=== PATIENT | male | born 1935 | race Caucasian/White ===

== ENCOUNTER 2016-12-08 17:35 | Inpatient (IN) ==
[2016-12-08] MEDS ORDERED: SODIUM CHLORIDE 0.9% 500 ML IV STA (18:03)
--- NOTE | 2016-12-08 18:07 | Emergency Department Note ---
Arrival - Arrival Chief Complaint: Altered Mental Status Stated Complaint: altered loc ED Nursing Triage Note: pt to er 06 via ems coming from home with c/o having ams. 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 ems states pt went unresponsive had a syncopal episode. pt did take morphine tabs and ems gave 0.8mg narcan group captain and pt woke up. Mode of Arrival: Stretcher Limitations: No Limitations Source: Patient Time Seen by Provider: 12/08/16 18:03 - History of Present Illness HPI Narrative: This 80-year-old white male presents 1 hour post syncopal spell at his place of employment. The patient was feeling particularly well today and was sitting on the couch at the business office when the next thing he knew he had people standing over him as he awakened after they stated he just passed out and became unresponsive for several seconds. The patient denies any symptoms associated with this syncopal spell, primarily being an abrupt spell with no preceding sweats, nausea, palpitations, chest pain, shortness of breath, visual changes, slurred speech, focal deficits, feeling warm all over, or headache. The patient does have small cell lung cancer that he completed chemo and radiation treatment for in July and does take narcotics on a regular basis but today had only taken one morphine pill and that was this morning. This being said when EMS arrived on the scene they gave the patient Narcan 0.8 mg and he promptly woke up. Currently he is back to normal, alert and oriented 3. Onset (ago): hour(s) (This patient presents 1 hour post incident) Allergies/Adverse Reactions: Allergies Allergy/AdvReac Type Severity Reaction Status Date / Time No Known Allergies Allergy Verified 12/08/16 17:55 Home Medications: Home Medications Medication Instructions Recorded Confirmed Type Aspirin EC Tab 325 mg PO DAILY 03/31/15 09/11/16 History Carvedilol [Coreg] 6.25 mg PO BID 03/31/15 09/11/16 History Esomeprazole Magnesium [Nexium] 40 mg PO DAILY 03/31/15 09/11/16 History Fosinopril [Monopril] 10 mg PO DAILY 03/31/15 09/11/16 History Rosuvastatin Calcium [Crestor] 5 mg PO DAILY 03/31/15 09/11/16 History Cilostazol [Pletal] 50 mg PO BID #60 tablet 04/06/16 09/11/16 Rx Clopidogrel [Plavix] 75 mg PO DAILY #30 tablet 04/06/16 09/11/16 Rx Hydromorphone HCl [Dilaudid] 4 mg PO Q4-6H #10 tablet 09/11/16 Rx Mirtazapine [Remeron] 30 mg PO BEDTIME 09/11/16 09/11/16 History Review of System - Review of System 12 point system: reviewed and no additional remarkable complaints except as stated - Review of System Constitutional: Present: as per HPI Respiratory: Present: as per HPI Cardiovascular: Present: as per HPI Gastrointestinal: Present: as per HPI Neurological: Present: as per HPI Medical,Surgical,& Family Hx - Medical History Cardio: History of: Congenital Heart Disease, CHF, CAD, Hypertension, Cardiovascular Problems (AAA) No history of: Aneurysm, Cardiac Dysrhythmia, Cerebrovascular Disease, [place], Pacemaker, PVD, Valvular Heart Disease Psychological: History of: Anxiety Disorders, Depression Neurology: No history of: Brain Aneurysm, Cerebral Hemorrhage, Cerebrovascular Accident , Cerebral Palsy, Dementia, Migraine, Multiple Sclerosis, Parkinson's Disease, Peripheral Neuropathy, Seizures, TIA, Vertigo, Neurologocal Cancer Endocrine: No history of: Diabetes Mellitus (IDDM), Diabetes Mellitus (NIDDM), Dyslipidemia Respiratory: History of: Lung Cancer No history of: Asthma, Bronchitis, COPD, Intubation, Obstructive Sleep Apnea , Pulmonary Embolism, Pulmonary Hypertension, Pneumonia, Respiratory Problems Musculoskeletal: No history of: Amputation - Surgical History Cardiac Surgeries: Sugical HX of: Cardiac Catheterization, Cardiac Surgery (CABG ) Patient Denies: Femoral-Popliteal Bypass Graft, Carotid Endarterectomy, Internal Defibrillator, Vascular Access Devices Thoracic Surgeries: Patient denies;: Organ Transplant, Lobectomy Neurologic Surgeries: Patient denies: Brain Aneurysm, Cerebral Hemorrhage, Neurologic Surgery HEENT Surgeries: Patient denies: Carotid Endarterectomy Abdominal Surgeries: Patient denies: Abdominal Surgery, Splenectomy Reproductive Surgeries: Patient denies;: Genitourinary Surgery - Social History Smoking Status: Former smoker Frequency of Alcohol Use: None Type of Drug Use: None Exam Physical Examination: GENERAL: Well developed, well nourished white male in no acute distress. HEENT: Normocephalic. No trauma. Moist mucous membranes. EOMI. PERRLA. ENT NML NECK: Supple. No adenopathy. CARDIAC: Regular. No murmurs. Heart rate 78 CHEST: Clear to auscultation. No respiratory distress. O2 sat 98% ABDOMEN: Soft. Nontender. Active bowel sounds. EXTREMITIES: No trauma. Normal ROM. No pedal edema. SKIN: No diaphoresis. No rash. NEURO: Alert. Oriented 3. Motor, sensory, vibratory intact. No focal deficits. Vital Signs: Vital Signs Temperature 98.4 F 12/08/16 17:35 Pulse Rate 76 12/08/16 17:35 Respiratory Rate 18 12/08/16 17:35 Blood Pressure 153/82 12/08/16 17:35 O2 Sat by Pulse Oximetry 97 12/08/16 18:30 Course - Reevaluation(s) Reevaluation #1: Advised patient and family of dehydration and need for admission given his degree of renal azotemia for fluid repletion. - Consultations Consultation #1: Discussed with Dr. Perales who will admit for Dr. Daniel for further evaluation treatment. Results - Labs CBC & BMP: 12/08/16 18:31 12/08/16 18:31 Labs: I have reviewed the laboratory and noted the renal azotemia and accompanying rhabdomyolysis. The patient's normal creatinine is 1.0. - Impressions EKG: Sinus rhythm at 76 with normal CO interval and QRS duration. Evidence of old inferior NH. Nonspecific ST changes with no acute injury pattern noted - Diagnostic Findings Procedure: Chest x-ray: image reviewed by me, report reviewed by me (Stable right midlung field lesion), CT: image reviewed by me, report reviewed by me ( Head: Cerebral atrophy with microvascular ischemia, interval lacunar infarct of the left cerebral hemisphere, midline posterior fossa arachnoid cyst.) Disposition Clinical Impression: Renal azotemia, Rhabdomyolysis, Qat cell carcinoma Case discussed with: patient, patient's family Disposition: Still a Patient Condition: Guarded Time of Disposition: 19:38
--- NOTE | 2016-12-08 18:29 | CT Report ---
CT head/brain wo con Indication: Altered mental status. Comparison: CT head 03/29/2016. Technique: CT of the brain was performed without administration of intravenous contrast. The CT examination was performed using one or more of the following dose reduction techniques: Automatic exposure control, adjustment of the mA and kV according to patient size, use of acute or iterative reconstruction techniques. Findings: There is no evidence of acute intracranial mass, hemorrhage, or infarction. Small lacunar infarction is noted within the right basal ganglia. Generalized cerebral atrophy is present. Areas of decreased attenuation within the periventricular white matter and cerebral white matter are present which could be compatible with microvascular ischemia. The basal cisterns are patent. No significant abnormality is demonstrated to involve the posterior fossa or cerebellum. Fluid collection near the midline of the posterior fossa is stable and suggests megacisterna magna, arachnoid cyst, or Dandy-Walker variant. Small interval lacunar infarction of the left cerebral hemisphere is present.. Orbits and globes demonstrate no evidence of significant pathology. The paranasal sinuses are clear. No significant abnormality is demonstrated to involve the mastoid air cells. The calvarium and overlying soft tissues demonstrate no evidence of acute pathology. Impression: 1. No CT evidence of acute intracranial pathology. 2. Stable chronic changes with exception of interval lacunar infarction of the left cerebellar hemisphere. 12/08/2016 6:24 PM PROCEDURE INTERPRETED AT [facility] DEPARTMENT OF RADIOLOGY Final Report Signed by: Dr. Lennox Dow
--- NOTE | 2016-12-08 18:29 | XRay Report ---
XR chest 1V portable Indication: Altered mental status. Shortness of breath. Comparison: Chest x-ray 09/11/2016 Technique: Portable AP chest was performed. Findings: Borderline to mild cardiomegaly is demonstrated. Sternal wires are unchanged. Left-sided venous access device is stable. Stranding within the mid right lung along the lateral lung parenchyma may reflect scarring and appears stable. Lungs otherwise are clear. The soft tissues appear stable. Impression: 1. Stable stranding lateral aspect of the mid right lung may reflect scarring. No active process is clearly demonstrated. 12/08/2016 6:26 PM PROCEDURE INTERPRETED AT [facility] DEPARTMENT OF RADIOLOGY Final Report Signed by: Dr. Lennox Dow
[2016-12-08 18:40] LABS: Basophils % 0.4 % (0.0-0.8); Eosinophils % 0.4 % (0.00-10.9); Hematocrit 37.9 VOL% (42.0-52.0); Hemoglobin 12.7 GM/DL (14.0-18.0); Immature Granulocytes % 0.4 %; Immature Granulocytes Absolute 0.02 #; Lymphocytes # 0.7 10*3/uL (1.4-4.0); Lymphocytes % 11.5 % (21.2-54.2); Mean Corpuscular HGB Conc 33.5 GM/DL (32-36); Mean Corpuscular Hemoglobin 30 PG (27-34); Mean Corpuscular Volume 90.5 FL (87-102); Mean Platelet Volume 9.6 FL (9.6-12.0); Monocytes # 0.5 10*3/uL (0.11-0.8); Neutrophils # 4.5 10*3/uL (1.4-7.4); Neutrophils % 78.3 % (38.7-73.9); Platelet Count 102 T/CUMM (130-400); Red Blood Count 4.19 MC/CUMM (3.8-5.5); Red Cell Distribution Width 14.2 % (9.3-17.3); White Blood Count 5.7 T/CUMM (4-12)
[2016-12-08 18:52] LABS: INR 1.1; PT Patient Result 11.4 SECS; Partial Thromboplastin Time 23.1 SECS (0-40)
[2016-12-08 18:58] LABS: Ammonia 24 UMOL/L (11-32)
[2016-12-08 19:14] LABS: Alanine Aminotransferase 28 U/L (16-61); Albumin 4.3 G/DL (3.4-5.0); Alkaline Phosphatase 54 U/L (45-117); Aspartate Amino Transferase 28 U/L (0-37); Blood Urea Nitrogen 36 MG/DL (7-18); CKMB % 1.7 %; Calcium 9.3 MG/DL (8.5-10.1); Glucose 106 MG/DL (74-106); Osmolality,Calculated 282.7 MOS/KG (273-304); Potassium 4.8 MMOL/L (3.5-5.1); Sodium 138 MMOL/L (136-145); Total Protein 7.3 G/DL (6.4-8.3); Troponin I Only < 0.015 NG/ML (0.00-0.045)
[2016-12-08] MEDS ORDERED: ONDANSETRON 4 MG/2 ML VIAL IV PRN (19:40)
[2016-12-08] MEDS ORDERED: ALBUTEROL/IPRATROPIUM 3 ML NEB RESP TX PRN (19:40)
[2016-12-08] MEDS: SODIUM CHLORIDE 0.9% 1,000 ML IV SCH (21:08)
[2016-12-08] MEDS: MIRTAZAPINE 30 MG TABLET PO SCH (21:12)
[2016-12-08] MEDS: CARVEDILOL 6.25 MG TABLET PO SCH (21:27)
[2016-12-08] MEDS: ROSUVASTATIN 20 MG TABLET PO SCH (21:27)
[2016-12-09] MEDS: SODIUM CHLORIDE 0.9% 1,000 ML IV SCH ×4 (02:51→15:25)
[2016-12-09 05:13] LABS: Apearance,Urine Slightly Hazy (Clear); Bilirubin,Urine Negative (Negative); Blood, Urine Negative (Negative); Glucose,Urine (UA) Negative (Negative); Hyaline Casts,Urine 1 /LPF (0-3); Ketones,Urine Negative (Negative); Mucus,Urine Occasional /LPF (Occasional); Nitrite,Urine Negative (Negative); Protein,Urine Negative; RBC,Urine <1 /HPF (0-4); Squamous Epithelial Cell,Urine Occasional /HPF (0-10); Urine Color Yellow (Yellow); Urine Specific Gravity 1.017 (1.001-1.035); WBC,Urine <1 /HPF (0-6)
[2016-12-09 06:22] LABS: Calcium 8.1 MG/DL (8.5-10.1); Osmolality,Calculated 285.4 MOS/KG (273-304)
--- NOTE | 2016-12-09 08:04 | EKG Report ---
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
[2016-12-09] MEDS: CARVEDILOL 6.25 MG TABLET PO SCH ×2 (08:49→21:06)
[2016-12-09] MEDS: PANTOPRAZOLE 40 MG TABLET PO SCH (08:49)
--- NOTE | 2016-12-09 08:49 | Internal Med History&Physical ---
Assessment and Plan (1) Change in mental state Status: Acute Assessment and plan: 80-year-old male admitted to acute care. * Change in mental status. Etiology is unclear but probably related to pain medications. Will try to find out what pain medication he has been taking. CT chest was negative for any acute changes. He was back to baseline after getting Narcan * Acute kidney injury. Patient's creatinine was 3.1 on admission. His renal function was normal about a month back. Will continue him on IV fluid * Coronary artery disease. Stable * Peripheral vascular disease. Stable. Will continue him on Plavix and Pletal along with aspirin * Hypertension. Blood pressure is stable at this time * Discussed with patient and his Current Visit: Yes (2) Acute kidney injury Status: Acute Current Visit: Yes (3) Coronary artery disease Status: Chronic Current Visit: No Qualifiers: Coronary Disease-Associated Artery/Lesion type: [place] artery [place] vs. transplanted heart: [place] heart Associated angina: without angina Qualified Code(s): I25.10 - Atherosclerotic heart disease of [place] coronary artery without angina pectoris (4) HTN (hypertension) Status: Chronic Current Visit: No Qualifiers: Hypertension type: essential hypertension Qualified Code(s): I10 - Essential (primary) hypertension (5) History of lung cancer Status: Chronic Current Visit: No (6) Ischemic cardiomyopathy Status: Chronic Current Visit: No History of Present Illness History of present illness: Mr. Torres is a 80 year old male with history of multiple medical problems including coronary artery disease, small cell lung cancer, hypertension, neuropathy and former smoker. Patient was admitted through emergency room with change in mental status. Patient had a syncopal episode while he was at his place of work. He was seen by EMS who gave him 0.8 mg of Narcan prior to arrival to the ER and patient woke up. Patient denied any chest pain or shortness of breath prior to this episode. He denies any other problems. Patient was found to have an acute kidney injury on arrival to the emergency room. He was started on IV fluids and admitted. He denies any chest pain or shortness of breath. He denies any nausea vomiting or diarrhea. He takes pain medicine per pain clinic. He had a recent cardiac evaluation in March of last year including a cardiac catheterization. He has ischemic cardiomyopathy. Patient is poor historian. His ex- is with him. He lives alone. He denies any smoking or alcohol use. He is a former smoker. Patient does take pain medications as mentioned above per pain clinic. Home Medications Medication Instructions Recorded Confirmed Type Aspirin EC Tab 325 mg PO DAILY 03/31/15 09/11/16 History Carvedilol [Coreg] 6.25 mg PO BID 03/31/15 09/11/16 History Esomeprazole Magnesium [Nexium] 40 mg PO DAILY 03/31/15 09/11/16 History Fosinopril [Monopril] 10 mg PO DAILY 03/31/15 09/11/16 History Rosuvastatin Calcium [Crestor] 5 mg PO DAILY 03/31/15 09/11/16 History Cilostazol [Pletal] 50 mg PO BID #60 tablet 04/06/16 09/11/16 Rx Clopidogrel [Plavix] 75 mg PO DAILY #30 tablet 04/06/16 09/11/16 Rx Hydromorphone HCl [Dilaudid] 4 mg PO Q4-6H #10 tablet 09/11/16 Rx Mirtazapine [Remeron] 30 mg PO BEDTIME 09/11/16 09/11/16 History Allergies Allergy/AdvReac Type Severity Reaction Status Date / Time No Known Allergies Allergy Verified 12/08/16 17:55 Medical,Surgical,& Family Hx - Medical History Cardio: History of: Congenital Heart Disease, CHF, CAD, Hypertension, Cardiovascular Problems (AAA) No history of: Aneurysm, Cardiac Dysrhythmia, Cerebrovascular Disease, [place], Pacemaker, PVD, Valvular Heart Disease Psychological: History of: Anxiety Disorders, Depression Neurology: No history of: Brain Aneurysm, Cerebral Hemorrhage, Cerebrovascular Accident , Cerebral Palsy, Dementia, Migraine, Multiple Sclerosis, Parkinson's Disease, Peripheral Neuropathy, Seizures, TIA, Vertigo, Neurologocal Cancer Endocrine: No history of: Diabetes Mellitus (IDDM), Diabetes Mellitus (NIDDM), Dyslipidemia Respiratory: History of: Lung Cancer No history of: Asthma, Bronchitis, COPD, Intubation, Obstructive Sleep Apnea , Pulmonary Embolism, Pulmonary Hypertension, Pneumonia, Respiratory Problems Musculoskeletal: No history of: Amputation - Surgical History Cardiac Surgeries: Sugical HX of: Cardiac Catheterization, Cardiac Surgery (CABG ) Patient Denies: Femoral-Popliteal Bypass Graft, Carotid Endarterectomy, Internal Defibrillator, Vascular Access Devices Thoracic Surgeries: Patient denies;: Organ Transplant, Lobectomy Neurologic Surgeries: Patient denies: Brain Aneurysm, Cerebral Hemorrhage, Neurologic Surgery HEENT Surgeries: Patient denies: Carotid Endarterectomy Abdominal Surgeries: Patient denies: Abdominal Surgery, Splenectomy Reproductive Surgeries: Patient denies;: Genitourinary Surgery - Family History Family History: Reports;: Family Cancer - Social History Smoking Status: Former smoker Frequency of Alcohol Use: None Type of Drug Use: None Marital Status: Lives With:: Alone Functional capacity: independent ambulation 12 point system: reviewed and no additional remarkable complaints except as stated (As mentioned in HPI) Exam - Constitutional Vitals: Period Temp Pulse Resp BP Sys/Rodriguez Pulse Ox Last 24 Hr 98.4 F-100.8 F 9-90 12-20 98-153/63-99 93-99 Exam: Examination: GENERAL: NAD. HEENT: PERRLA. EOMI. Mucous membranes are moist. NECK: Neck is supple. No JVD. Bilateral bruits CVS: Regular rate and rhythm. S1 and S2 are normal. RESPIRATORY: Lungs are clear. No rales or rhonchi. ABDOMEN: Soft and nontender. Bowel sounds are present. No hepatosplenomegaly. EXT: No edema. Peripheral pulses are present. 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 Cranial nerves II through XII are grossly intact. Motor strength is 5 over 5 both upper and lower extremities. SKIN: Warm and dry. MSK: No obvious deformity. Results - Labs CBC & BMP: 12/08/16 18:31 12/09/16 04:00 Lab Results: I have reviewed the past 24 hour labs
[2016-12-09] MEDS ORDERED: FOSINOPRIL 10 MG TABLET PO SCH (09:00)
[2016-12-09] MEDS: GABAPENTIN 400 MG CAPSULE PO SCH ×3 (11:00→21:06)
[2016-12-09] MEDS ORDERED: NON-FORMULARY MEDICATION (Gabapentin [Gabapentin] 800 MG) PO SCH (15:00)
[2016-12-09] MEDS: LORazepam 2 MG/1 ML VIAL IV PRN (18:54)
[2016-12-09] MEDS: ROSUVASTATIN 20 MG TABLET PO SCH (21:06)
[2016-12-09] MEDS: MIRTAZAPINE 30 MG TABLET PO SCH (21:06)
[2016-12-09] MEDS: CILOSTAZOL 50 MG TABLET PO SCH (21:06)
[2016-12-10] MEDS: SODIUM CHLORIDE 0.9% 1,000 ML IV SCH ×4 (00:18→20:27)
[2016-12-10 05:30] LABS: Basophils % 0.4 % (0.0-0.8); Eosinophils # 0.1 10*3/uL (0.0-0.87); Eosinophils % 2.1 % (0.00-10.9); Hematocrit 31.7 VOL% (42.0-52.0); Hemoglobin 10.7 GM/DL (14.0-18.0); Immature Granulocytes % 0.7 %; Immature Granulocytes Absolute 0.02 #; Lymphocytes # 0.8 10*3/uL (1.4-4.0); Lymphocytes % 27.7 % (21.2-54.2); Mean Corpuscular HGB Conc 33.8 GM/DL (32-36); Mean Corpuscular Hemoglobin 30 PG (27-34); Mean Corpuscular Volume 90.1 FL (87-102); Mean Platelet Volume 9.8 FL (9.6-12.0); Monocytes # 0.4 10*3/uL (0.11-0.8); Monocytes % 12.3 % (1.7-12.7); Neutrophils # 1.6 10*3/uL (1.4-7.4); Neutrophils % 56.8 % (38.7-73.9); Platelet Count 63 T/CUMM (130-400); Red Blood Count 3.52 MC/CUMM (3.8-5.5); Red Cell Distribution Width 13.6 % (9.3-17.3); White Blood Count 2.9 T/CUMM (4-12)
[2016-12-10 05:51] LABS: Calcium 8.6 MG/DL (8.5-10.1); Osmolality,Calculated 290.7 MOS/KG (273-304); Potassium 4.6 MMOL/L (3.5-5.1)
[2016-12-10 06:03] LABS: Eosinophils 4 % (0-10); Hypochromasia 1+; Lymphocytes 34 % (20-55); Microcytosis 1+; Platelet Estimate Decreased; Segmented Neutrophils 54 % (50-85); Total Cells Counted 100
[2016-12-10 07:09] LABS: Basophils % 0.3 % (0.0-0.8); Eosinophils # 0.1 10*3/uL (0.0-0.87); Eosinophils % 2.4 % (0.00-10.9); Hematocrit 34.1 VOL% (42.0-52.0); Hemoglobin 11.6 GM/DL (14.0-18.0); Immature Granulocytes % 0.3 %; Immature Granulocytes Absolute 0.01 #; Lymphocytes # 0.8 10*3/uL (1.4-4.0); Lymphocytes % 23.6 % (21.2-54.2); Mean Corpuscular Hemoglobin 30 PG (27-34); Mean Platelet Volume 9.5 FL (9.6-12.0); Monocytes # 0.4 10*3/uL (0.11-0.8); Monocytes % 10.6 % (1.7-12.7); Neutrophils # 2.1 10*3/uL (1.4-7.4); Neutrophils % 62.8 % (38.7-73.9); Red Blood Count 3.83 MC/CUMM (3.8-5.5); Red Cell Distribution Width 13.5 % (9.3-17.3); White Blood Count 3.3 T/CUMM (4-12)
[2016-12-10 07:10] LABS: Platelet Count 95 T/CUMM (130-400)
[2016-12-10 07:27] LABS: Platelet Estimate Decreased
[2016-12-10] MEDS: GABAPENTIN 400 MG CAPSULE PO SCH ×3 (08:53→20:21)
[2016-12-10] MEDS: FENOFIBRATE 160 MG TABLET PO SCH (08:54)
[2016-12-10] MEDS: CLOPIDOGREL 75 MG TABLET PO SCH (08:54)
[2016-12-10] MEDS: CILOSTAZOL 50 MG TABLET PO SCH ×2 (08:54→20:21)
[2016-12-10] MEDS: ROSUVASTATIN 10 MG TABLET PO SCH (08:54)
[2016-12-10] MEDS: CARVEDILOL 6.25 MG TABLET PO SCH ×2 (08:54→20:21)
[2016-12-10] MEDS: PANTOPRAZOLE 40 MG TABLET PO SCH (08:54)
[2016-12-10] MEDS ORDERED: NON-FORMULARY MEDICATION (Esomeprazole Magnesium [Nexium] 40 MG) PO SCH (09:00)
--- NOTE | 2016-12-10 09:33 | Family Practice Progress Note ---
Family Practice - PN: Subj Interval history: PCP: Dr. ORTIZ. Admitted for change in mental status, acute kidney injury. ( Patient has history of coronary artery disease, hypertension, history of lung cancer) Patient seen and examined, sitting at the bedside, ambulating well. Mentions he feels better than yesterday. No fever, nausea, vomiting, chest pain, shortness of breath, headaches, dizziness. No overnight events reported by the nurse Exam (Progress Note) - Constitutional Vitals: Period Temp Pulse Resp BP Sys/Rodriguez Pulse Ox Last 24 Hr 96.8 F-98.2 F 59-71 18-20 128-149/70-79 95-99 Exam: GENERAL APPEARANCE: alert and oriented 2, pleasant, in no acute distress, sitting at the bedside. HEENT: normal. EYES: extraocular movement intact (EOMI), conjunctiva clear, normal. NECK/THYROID: neck supple, full range of motion, no cervical lymphadenopathy, no thyromegaly. HEART: regular rate and rhythm, no murmurs, rubs, gallops. LUNGS: clear to auscultation bilaterally, no wheezes, rales, rhonchi. ABDOMEN: soft, nontender, nondistended, no organomegaly , bowel sounds present. EXTREMITIES: no edema. NEUROLOGIC: alert and oriented, cranial nerves 2-12 grossly intact, gait normal, normal strength, Results - Labs CBC & BMP: 12/10/16 06:47 12/10/16 04:33 Lab Results: I have reviewed the past 24 hour labs - Impressions Reviewed of chest x-ray, head CT results from admission CT chest PE study, 09/11/2016 IMPRESSION: No segmental or larger pulmonary embolism demonstrated. Grossly stable irregular opacity within the right upper lobe measuring approximately 3.2 x 3.8 cm in largest axial dimension. This is consistent with known history of lung cancer. 3 mm nodule within the right lower lobe appears stable. Status post CABG and other detailed findings as above. Assessment and Plan (1) Change in mental state Status: Acute Assessment and plan: Improving, continue current management. 2. Acute kidney injury, improved, will decrease IV fluids, patient eating well. 3. Patient is having low blood counts, will do him hem-Oncology consult today. 4. CAD, stable on medications. 5. History of lung cancer, chronic, last CT chest, september 2016 , Ct chest/ abdomen done in July 2016. 6. Peripheral vascular disease stable continue Plavix and Pletal, aspirin 7. Hypertension, stable continue blood pressure meds. Current Visit: Yes (2) Acute kidney injury Status: Acute Current Visit: Yes (3) Coronary artery disease Status: Chronic Current Visit: No Qualifiers: Coronary Disease-Associated Artery/Lesion type: [place] artery [place] vs. transplanted heart: [place] heart Associated angina: without angina Qualified Code(s): I25.10 - Atherosclerotic heart disease of [place] coronary artery without angina pectoris (4) Dyslipidemia Status: Chronic Current Visit: No (5) HTN (hypertension) Status: Chronic Current Visit: No Qualifiers: Hypertension type: essential hypertension Qualified Code(s): I10 - Essential (primary) hypertension (6) History of lung cancer Status: Chronic Current Visit: No (7) Ischemic cardiomyopathy Status: Chronic Current Visit: No (8) PVD (peripheral vascular disease) Status: Chronic Current Visit: No
--- NOTE | 2016-12-10 10:29 | Hematology Consult ---
History of Present Illness - Consult Narrative History of present illness: Mr. Torres is a 80 year old male with a history of lung cancer that was previously treated by Dr. Anand and has been on observation only. He is admitted now with altered mental status. It appears that he took too much of his narcotic medications and his symptoms improved with Narcan dosing. Hematology has been consulted to evaluate his low white blood cell count and mild thrombocytopenia. Looking back over his lab work, these are stable for at least the past 12 months and are most likely his baseline. I see no reason to have further hematology workup. If there is any questions that we may be of assistance with, please feel free to call. CC: Jayant Daniel MD - Home Medications and Allergies Home Medications: Home Medications Medication Instructions Recorded Confirmed Type Aspirin EC Tab 325 mg PO DAILY 03/31/15 12/09/16 History Carvedilol [Coreg] 6.25 mg PO BID 03/31/15 12/09/16 History Esomeprazole Magnesium [Nexium] 40 mg PO DAILY 03/31/15 12/09/16 History Fosinopril [Monopril] 10 mg PO DAILY 03/31/15 12/09/16 History Rosuvastatin Calcium [Crestor] 5 mg PO DAILY 03/31/15 12/09/16 History Mirtazapine [Remeron] 30 mg PO BEDTIME 09/11/16 12/09/16 History Buprenorphine HCl 8 mg PO DAILY PRN 12/09/16 12/09/16 History Cilostazol [Pletal] 50 mg PO BID 12/09/16 12/09/16 History Clopidogrel [Plavix] 75 mg PO DAILY 12/09/16 12/09/16 History Fenofibrate 160 mg PO DAILY 12/09/16 12/09/16 History Furosemide 20 mg PO DAILY 12/09/16 12/09/16 History Gabapentin 800 mg PO TID 12/09/16 12/09/16 History HYDROcodone/ACETAMIN 7.5-325 7.5 tablet PO Q12HR PRN 12/09/16 12/09/16 History [[place] 7.5-325] HydrOXYzine PAMOATE CAP [Vistaril 25 mg PO Q8HR PRN 12/09/16 12/09/16 History Cap] Hydrocodone/Acetaminophen [[place] 10 tablet PO DAILY PRN 12/09/16 12/09/16 History 10-325 Tablet] Hydromorphone HCl [Dilaudid] 4 mg PO Q4-6H 12/09/16 12/09/16 History LORazepam TAB [Ativan Tab] 1 mg PO DAILY PRN 12/09/16 12/09/16 History Methocarbamol Tab [Robaxin Tab] 750 mg PO Q8HR PRN 12/09/16 12/09/16 History Morphine ER Tab [Ms Contin] 30 mg PO Q12HR PRN 12/09/16 12/09/16 History tiZANidine [Zanaflex] 4 mg PO Q8HR PRN 12/09/16 12/09/16 History Allergies/Adverse Reactions: Allergies Allergy/AdvReac Type Severity Reaction Status Date / Time No Known Allergies Allergy Verified 12/08/16 17:55 Medical,Surgical,& Family Hx - Medical History Cardio: History of: Congenital Heart Disease, CHF, CAD, Hypertension, Cardiovascular Problems (AAA) No history of: Aneurysm, Cardiac Dysrhythmia, Cerebrovascular Disease, [place], Pacemaker, PVD, Valvular Heart Disease Psychological: History of: Anxiety Disorders, Depression Neurology: No history of: Brain Aneurysm, Cerebral Hemorrhage, Cerebrovascular Accident , Cerebral Palsy, Dementia, Migraine, Multiple Sclerosis, Parkinson's Disease, Peripheral Neuropathy, Seizures, TIA, Vertigo, Neurologocal Cancer Endocrine: No history of: Diabetes Mellitus (IDDM), Diabetes Mellitus (NIDDM), Dyslipidemia Respiratory: History of: Lung Cancer No history of: Asthma, Bronchitis, COPD, Intubation, Obstructive Sleep Apnea , Pulmonary Embolism, Pulmonary Hypertension, Pneumonia, Respiratory Problems Musculoskeletal: No history of: Amputation - Surgical History Cardiac Surgeries: Sugical HX of: Cardiac Catheterization, Cardiac Surgery (CABG ) Patient Denies: Femoral-Popliteal Bypass Graft, Carotid Endarterectomy, Internal Defibrillator, Vascular Access Devices Thoracic Surgeries: Patient denies;: Organ Transplant, Lobectomy Neurologic Surgeries: Patient denies: Brain Aneurysm, Cerebral Hemorrhage, Neurologic Surgery HEENT Surgeries: Patient denies: Carotid Endarterectomy Abdominal Surgeries: Patient denies: Abdominal Surgery, Splenectomy Reproductive Surgeries: Patient denies;: Genitourinary Surgery - Family History Family History: Reports;: Family Cancer - Social History Smoking Status: Former smoker Frequency of Alcohol Use: None Type of Drug Use: None Exam - Constitutional Vitals: Period Temp Pulse Resp BP Sys/Rodriguez Pulse Ox Last 24 Hr 96.8 F-98.2 F 59-71 18-20 128-149/70-79 95-99 Results - Labs CBC & BMP: 12/10/16 06:47 12/10/16 04:33
[2016-12-10] MEDS: ROSUVASTATIN 20 MG TABLET PO SCH (20:20)
[2016-12-10] MEDS: MIRTAZAPINE 30 MG TABLET PO SCH (20:21)
[2016-12-10] MEDS: LORazepam 2 MG/1 ML VIAL IV PRN (20:23)
[2016-12-11] MEDS: SODIUM CHLORIDE 0.9% 1,000 ML IV SCH ×3 (01:53→16:32)
[2016-12-11 07:41] LABS: Basophils % 0.3 % (0.0-0.8); Eosinophils # 0.1 10*3/uL (0.0-0.87); Eosinophils % 2.6 % (0.00-10.9); Hematocrit 35.3 VOL% (42.0-52.0); Hemoglobin 12.2 GM/DL (14.0-18.0); Immature Granulocytes % 0.3 %; Immature Granulocytes Absolute 0.01 #; Lymphocytes # 0.7 10*3/uL (1.4-4.0); Lymphocytes % 20.6 % (21.2-54.2); Mean Corpuscular HGB Conc 34.6 GM/DL (32-36); Mean Corpuscular Hemoglobin 31 PG (27-34); Mean Corpuscular Volume 88.5 FL (87-102); Mean Platelet Volume 9.3 FL (9.6-12.0); Monocytes # 0.4 10*3/uL (0.11-0.8); Monocytes % 11.3 % (1.7-12.7); Neutrophils # 2.2 10*3/uL (1.4-7.4); Neutrophils % 64.9 % (38.7-73.9); Platelet Count 109 T/CUMM (130-400); Red Blood Count 3.99 MC/CUMM (3.8-5.5); Red Cell Distribution Width 13.4 % (9.3-17.3); White Blood Count 3.5 T/CUMM (4-12)
[2016-12-11 08:16] LABS: Albumin 3.6 G/DL (3.4-5.0); Bilirubin,Total 0.5 MG/DL (0.2-1.0); Calcium 8.5 MG/DL (8.5-10.1); Potassium 4.2 MMOL/L (3.5-5.1)
--- NOTE | 2016-12-11 08:56 | Family Practice Progress Note ---
Family Practice - PN: Subj Interval history: PCP: Dr. ORTIZ. Admitted for change in mental status, acute kidney injury. ( Patient has history of coronary artery disease, hypertension, history of lung cancer) Patient seen and examined, lying in the bed, at bed side, No fever, nausea, vomiting, chest pain, shortness of breath, headaches, dizziness. had episode of anxiety spell last kodi around 6.30 PM , relieved with ativan, pt is not taking any meds of his own, from home, per the , she has been living separately from the pt since 8-9 years,as per her ,the patient would not get help or disclose whats going on? , the present anxiety spells since 1 year, saw psychiatrist ? only once , has personal stressors , specially with his son,who is on drugs and in and out of the [facility], and anxiety spells happening more often now a days, mostly around evenings or nights, pt on chronic pain meds,? goes to pain clinic, Exam (Progress Note) - Constitutional Vitals: Period Temp Pulse Resp BP Sys/Rodriguez Pulse Ox Last 24 Hr 98.2 F-99.3 F 57-71 16-21 120-187/64-85 91-98 Exam: GENERAL APPEARANCE: alert and oriented 2, pleasant, in no acute distress, lying in the bed. HEENT: normal. EYES: extraocular movement intact (EOMI), conjunctiva clear, normal. NECK/THYROID: neck supple, full range of motion, no cervical lymphadenopathy, no thyromegaly. HEART: regular rate and rhythm, no murmurs, rubs, gallops. LUNGS: clear to auscultation bilaterally, no wheezes, rales, rhonchi. ABDOMEN: soft, nontender, nondistended, no organomegaly , bowel sounds present. EXTREMITIES: no edema. NEUROLOGIC:, cranial nerves 2-12 grossly intact, Results - Labs CBC & BMP: 12/11/16 07:15 12/11/16 07:15 Assessment and Plan (1) Change in mental state Status: Acute Assessment and plan: Improving, continue current management. 2. Acute kidney injury, improved, IV fluids continue for today, 3. Anxiety , continue ativan PRN, need of psychiatry evaluation as outpt, 4. CAD, stable on medications. 5. History of lung cancer, chronic, stable currently, 6. Peripheral vascular disease stable continue Plavix and Pletal 7. Hypertension, stable continue blood pressure meds. Current Visit: Yes (2) Acute kidney injury Status: Acute Current Visit: Yes (3) Coronary artery disease Status: Chronic Current Visit: No Qualifiers: Coronary Disease-Associated Artery/Lesion type: [place] artery [place] vs. transplanted heart: [place] heart Associated angina: without angina Qualified Code(s): I25.10 - Atherosclerotic heart disease of [place] coronary artery without angina pectoris (4) Dyslipidemia Status: Chronic Current Visit: No (5) HTN (hypertension) Status: Chronic Current Visit: No Qualifiers: Hypertension type: essential hypertension Qualified Code(s): I10 - Essential (primary) hypertension (6) Anxiety attack Status: Chronic Current Visit: Yes (7) Ischemic cardiomyopathy Status: Chronic Current Visit: No (8) History of lung cancer Status: Chronic Current Visit: No (9) PVD (peripheral vascular disease) Status: Chronic Current Visit: No
[2016-12-11] MEDS: GABAPENTIN 400 MG CAPSULE PO SCH ×3 (09:33→22:28)
[2016-12-11] MEDS: CILOSTAZOL 50 MG TABLET PO SCH ×2 (09:33→22:29)
[2016-12-11] MEDS: ROSUVASTATIN 10 MG TABLET PO SCH (09:33)
[2016-12-11] MEDS: CLOPIDOGREL 75 MG TABLET PO SCH (09:33)
[2016-12-11] MEDS: PANTOPRAZOLE 40 MG TABLET PO SCH (09:33)
[2016-12-11] MEDS: FENOFIBRATE 160 MG TABLET PO SCH (09:33)
[2016-12-11] MEDS: CARVEDILOL 6.25 MG TABLET PO SCH ×2 (09:34→22:29)
[2016-12-11] MEDS: MIRTAZAPINE 30 MG TABLET PO SCH (22:30)
[2016-12-11] MEDS: ROSUVASTATIN 20 MG TABLET PO SCH (22:33)
[2016-12-11] MEDS: LORazepam 2 MG/1 ML VIAL IV PRN (23:55)
[2016-12-12] MEDS: SODIUM CHLORIDE 0.9% 1,000 ML IV SCH (02:16)
--- NOTE | 2016-12-12 06:45 | Pain Management Consult Note ---
Assessment and Plan (1) Chronic pain Status: Acute Assessment and plan: he wishes to continue with current medication for pain and wants to follow up with Dr. guzmán as op Current Visit: Yes Qualifiers: Chronic pain type: chronic pain syndrome Qualified Code(s): G89.4 - Chronic pain syndrome History of Present Illness Chief complaint: change in mental status History of present illness: Mr. Torres is a 80 year old male he is better now with is mental status and denies any prescription abuse. he sees Dr guzmán as op for pain management and wishes to follow with him as op Home Medications Medication Instructions Recorded Confirmed Type Aspirin EC Tab 325 mg PO DAILY 03/31/15 12/09/16 History Carvedilol [Coreg] 6.25 mg PO BID 03/31/15 12/09/16 History Esomeprazole Magnesium [Nexium] 40 mg PO DAILY 03/31/15 12/09/16 History Fosinopril [Monopril] 10 mg PO DAILY 03/31/15 12/09/16 History Rosuvastatin Calcium [Crestor] 5 mg PO DAILY 03/31/15 12/09/16 History Mirtazapine [Remeron] 30 mg PO BEDTIME 09/11/16 12/09/16 History Buprenorphine HCl 8 mg PO DAILY PRN 12/09/16 12/09/16 History Cilostazol [Pletal] 50 mg PO BID 12/09/16 12/09/16 History Clopidogrel [Plavix] 75 mg PO DAILY 12/09/16 12/09/16 History Fenofibrate 160 mg PO DAILY 12/09/16 12/09/16 History Furosemide 20 mg PO DAILY 12/09/16 12/09/16 History Gabapentin 800 mg PO TID 12/09/16 12/09/16 History HYDROcodone/ACETAMIN 7.5-325 7.5 tablet PO Q12HR PRN 12/09/16 12/09/16 History [[place] 7.5-325] HydrOXYzine PAMOATE CAP [Vistaril 25 mg PO Q8HR PRN 12/09/16 12/09/16 History Cap] Hydrocodone/Acetaminophen [[place] 10 tablet PO DAILY PRN 12/09/16 12/09/16 History 10-325 Tablet] Hydromorphone HCl [Dilaudid] 4 mg PO Q4-6H 12/09/16 12/09/16 History LORazepam TAB [Ativan Tab] 1 mg PO DAILY PRN 12/09/16 12/09/16 History Methocarbamol Tab [Robaxin Tab] 750 mg PO Q8HR PRN 12/09/16 12/09/16 History Morphine ER Tab [Ms Contin] 30 mg PO Q12HR PRN 12/09/16 12/09/16 History tiZANidine [Zanaflex] 4 mg PO Q8HR PRN 12/09/16 12/09/16 History Allergies Allergy/AdvReac Type Severity Reaction Status Date / Time No Known Allergies Allergy Verified 12/08/16 17:55 Medical,Surgical,& Family Hx - Medical History Cardio: History of: Congenital Heart Disease, CHF, CAD, Hypertension, Cardiovascular Problems (AAA) No history of: Aneurysm, Cardiac Dysrhythmia, Cerebrovascular Disease, MT, Pacemaker, PVD, Valvular Heart Disease Psychological: History of: Anxiety Disorders, Depression Neurology: No history of: Brain Aneurysm, Cerebral Hemorrhage, Cerebrovascular Accident , Cerebral Palsy, Dementia, Migraine, Multiple Sclerosis, Parkinson's Disease, Peripheral Neuropathy, Seizures, TIA, Vertigo, Neurologocal Cancer Endocrine: No history of: Diabetes Mellitus (IDDM), Diabetes Mellitus (NIDDM), Dyslipidemia Respiratory: History of: Lung Cancer No history of: Asthma, Bronchitis, COPD, Intubation, Obstructive Sleep Apnea , Pulmonary Embolism, Pulmonary Hypertension, Pneumonia, Respiratory Problems Musculoskeletal: History of: Degenerative Disk Disease, Musculoskeletal Problems No history of: Amputation - Surgical History Cardiac Surgeries: Sugical HX of: Cardiac Catheterization, Cardiac Surgery (CABG ) Patient Denies: Femoral-Popliteal Bypass Graft, Carotid Endarterectomy, Internal Defibrillator, Vascular Access Devices Thoracic Surgeries: Patient denies;: Organ Transplant, Lobectomy Neurologic Surgeries: Patient denies: Brain Aneurysm, Cerebral Hemorrhage, Neurologic Surgery HEENT Surgeries: Patient denies: Carotid Endarterectomy Abdominal Surgeries: Patient denies: Abdominal Surgery, Splenectomy Reproductive Surgeries: Patient denies;: Genitourinary Surgery - Family History Family History: Reports;: Family Cancer - Social History Smoking Status: Former smoker Frequency of Alcohol Use: None Type of Drug Use: None 12 point system: reviewed and no additional remarkable complaints except as stated Exam - Constitutional Vitals: Period Temp Pulse Resp BP Sys/Rodriguez Pulse Ox Last 24 Hr 97.5 F-98.8 F 57-70 16-21 112-166/62-91 91-95 General appearance: no acute distress - Head Head exam: Present: normal inspection - Eye Eye exam: Present: EOMI Pupils: Present: SILVANO - ENT ENT exam: Present: normal exam Ear exam: Present: intact Mouth exam: Present: normal external inspection - Neck Neck exam: Present: normal inspection - Respiratory Respiratory exam: Present: clear to auscultation bilaterally - Cardiovascular Cardiovascular exam: Present: RRR - Extremities Exam Extremities exam: Present: normal inspection - Back Exam Back exam: Present: vertebral tenderness - Neurological Exam Neurological exam: Present: alert, oriented X3 - Skin Skin exam: Present: normal color Results - Labs CBC & BMP: 12/11/16 07:15 12/11/16 07:15 Lab Results: I have reviewed the past 24 hour labs
[2016-12-12 07:53] VITALS: BP 109/62
--- NOTE | 2016-12-12 08:44 | Discharge Summary ---
Hospital Course - Hospital Course Hospital Course: 80-year-old male admitted to acute care with change in mental status which was probably secondary to polypharmacy. He was evaluated in the emergency room with CT brain. Patient was found to have elevated creatinine. Patient was given Narcan en route by cloud automation tester. He woke up. Patient was started on IV fluids. His BONIFACIO inhibitor and diuretics were held. He has improved over last several days and is ready to go back home. He was evaluated by Dr. Palacio. He is followed by Dr. Cunningham for pain clinic. He is on several narcotics. He will see Dr. Cunningham for pain management for chronic back pain. He has an appointment set up with me for follow-up. Diagnosis - Discharge Diagnosis (1) Change in mental state Status: Acute (2) Acute kidney injury Status: Acute (3) Coronary artery disease Status: Chronic (4) HTN (hypertension) Status: Chronic (5) History of lung cancer Status: Chronic (6) Ischemic cardiomyopathy Status: Chronic Discharge Plan - Discharge Data Disposition: Disch To Home/Self Care Condition at Discharge: Stable Discharge Diet: advance to your usual diet Activity: resume usual activities as tolerated - Discharge Medications Continue Aspirin EC Tab 325 mg PO DAILY Carvedilol [Coreg] 6.25 mg PO BID Rosuvastatin Calcium [Crestor] 5 mg PO DAILY Fosinopril [Monopril] 10 mg PO DAILY Esomeprazole Magnesium [Nexium] 40 mg PO DAILY tiZANidine [Zanaflex] 4 mg PO Q8HR PRN PRN Reason: Muscle Relaxant HYDROcodone/ACETAMIN 7.5-325 [[place] 7.5-325] 7.5 tablet PO Q12HR PRN PRN Reason: Pain Gabapentin 800 mg PO TID Fenofibrate 160 mg PO DAILY LORazepam TAB [Ativan Tab] 1 mg PO DAILY PRN PRN Reason: Anxiety/ Agitation Clopidogrel [Plavix] 75 mg PO DAILY Cilostazol [Pletal] 50 mg PO BID Furosemide 20 mg PO DAILY Mirtazapine [Remeron] 30 mg PO BEDTIME Methocarbamol Tab [Robaxin Tab] 750 mg PO Q8HR PRN PRN Reason: Muscle Relaxant Discontinued Hydrocodone/Acetaminophen [[place] 10-325 Tablet] 10 tablet PO DAILY PRN PRN Reason: Pain (Breakthrough) Morphine ER Tab [Ms Contin] 30 mg PO Q12HR PRN PRN Reason: Pain Buprenorphine HCl 8 mg PO DAILY PRN PRN Reason: Pain HydrOXYzine PAMOATE CAP [Vistaril Cap] 25 mg PO Q8HR PRN PRN Reason: Antihistamine Hydromorphone HCl [Dilaudid] 4 mg PO Q4-6H - Follow Up or Referral - Forms/Instructions Exam - Constitutional Vitals: Period Temp Pulse Resp BP Sys/Rodriguez Pulse Ox Last 24 Hr 97.5 F-98.7 F 64-70 16-20 109-166/62-91 91-95 Exam: Examination: GENERAL: NAD. HEENT: PERRLA. EOMI. Mucous membranes are moist. NECK: Neck is supple. No JVD. Bilateral bruits CVS: Regular rate and rhythm. RESPIRATORY: Lungs are clear. ABDOMEN: Soft and nontender. Bowel sounds are present. No hepatosplenomegaly. EXT: No edema. Peripheral pulses are present. 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 Discharge Results Procedures and tests throughout hospitalization: Pending Orders 12/08/16 18:31 Blood Culture Stat Labs on day of discharge: Preliminary micro results at discharge 12/08/16 18:31 Blood Culture - Preliminary Blood No growth at 3 days 12/08/16 18:31 Blood Culture - Preliminary Blood No growth at 3 days DS: Provider Date of admission: 12/08/16 19:39 Primary care physician: Wai Wolfe MD Attending physician on admission: Jayant Daniel MD Consults: 12/09/16 18:27 Consult to Case Mgmt/Social Srvs [CONS] Routine Reason for Case Mgmt/Social Srvs: Swingbed/SNF/Care Home 12/09/16 18:42 Consult to Physician [CONS] Routine Comment: Avoid Withdrawal Consulting Provider: Jody Palacio When should Consulting Provider be notified: In am Consult to Specialist Group: Pain Management When should Consulting Provider be notified: In am 12/10/16 10:19 Consult to Physician [CONS] Routine Comment: Consulting Provider: Andres Campos Consulting Provider Notified: Yes Discharging clinician: Jayant Daniel MD
--- NOTE | 2016-12-12 09:23 | Physician Query Form ---
CLICK EDIT DOCUMENT TO SELECT QUERY ANSWER --> OK --> SIGN Nicole Dow RN, CCDS Certified Clinical Electroencephalographic Technician W) [phone] (f) [phone] [email or web address] PROVIDERS: Make your selection(s) from the choices in EACH section by typing an "x" and enter comments in the comment section. Please use your independent medical judgment in providing your response. This request does not imply that any particular answer is desired or expected. CLINICAL INDICATORS: (Providers should not edit this section) The medical record indicate that the patient was admitted with AMS, "probably secondary to Polypharmacy" AND the patient had a CT of the brain done. ACUITY: ( x) Acute ( ) Acute on Chronic ( ) Chronic ( ) Clinically unable to determine NATURE: ( ) Delirium due to general medical condition ( ) Dementia ( ) Encephalopathy ( ) Unconscious ( ) Transient level of awareness ( ) Comatose ( ) Locked-in State ( ) Persistent Vegetative State ( x) Other, please specify: Probably secondary to polypharmacy ( ) Clinically unable to determine Please indicate the underlying cause of the altered mental status (CHECK ALL THAT APPLY): ( ) Baseline dementia ( ) Alzheimer's disease ( ) Parkinson's disease ( ) Lewy body dementia ( ) Acute stroke ( ) Late effect of stroke ( ) Reactive (from emotional stress, psychological trauma) (x ) Due to narcotics/other drugs ( ) Post procedural delirium ( ) Transient ischemic attack ( ) Generalized cerebral edema ( ) Normal pressure hydrocephalus ( ) Psychiatric illness ( ) Other, please specify: ( ) Clinically unable to determine Please indicate if there is an infection, sepsis, dehydration or specific organ failure that is causing the dementia. Be specific with clarifying the relationship between that process and the mental status change. COMMENTS: PLEASE ALSO DOCUMENT RESPONSE IN PROGRESS NOTES AND/OR DISCHARGE SUMMARY Use of terms such as suspected, likely, or probable (associated with a specific diagnosis that is being evaluated, monitored, or treated as if it exists) are acceptable and can be restated in the discharge summary if not ruled out. [place]
[2016-12-12] MEDS: CLOPIDOGREL 75 MG TABLET PO SCH (09:32)
[2016-12-12] MEDS: ROSUVASTATIN 10 MG TABLET PO SCH (09:32)
[2016-12-12] MEDS: FENOFIBRATE 160 MG TABLET PO SCH (09:32)
[2016-12-12] MEDS: CILOSTAZOL 50 MG TABLET PO SCH (09:33)
[2016-12-12] MEDS: GABAPENTIN 400 MG CAPSULE PO SCH (09:33)
[2016-12-12] MEDS: PANTOPRAZOLE 40 MG TABLET PO SCH (09:33)
[2016-12-12] MEDS: CARVEDILOL 6.25 MG TABLET PO SCH (09:33)
[2016-12-12] MEDS ORDERED: HEPARIN LOCK FLUSH 500 UNIT/5 ML SYRINGE IV ONE (09:36)
== END 2016-12-12 09:55 | disposition home or self-care (01) | DRG 918 ==
LOC: EDBD → EDUNIT# → N.ED 17:35 → N.EDINP 19:39 → N.4E 19:56
PROVIDERS: ADMIT Internal Medicine; ATTEND Internal Medicine

== ENCOUNTER 2017-04-04 06:15 | Inpatient (IN) ==
[2017-03-22 09:43] LABS: Basophils % 0.6 % (0.0-0.8); Eosinophils # 0.1 10*3/uL (0.0-0.87); Eosinophils % 1.4 % (0.00-10.9); Hematocrit 41.4 VOL% (42.0-52.0); Hemoglobin 14.4 GM/DL (14.0-18.0); Immature Granulocytes % 0.6 %; Immature Granulocytes Absolute 0.02 #; Lymphocytes # 0.9 10*3/uL (1.4-4.0); Lymphocytes % 23.8 % (21.2-54.2); Mean Corpuscular HGB Conc 34.8 GM/DL (32-36); Mean Corpuscular Hemoglobin 31 PG (27-34); Mean Corpuscular Volume 90.2 FL (87-102); Monocytes # 0.3 10*3/uL (0.11-0.8); Monocytes % 9.1 % (1.7-12.7); Neutrophils # 2.3 10*3/uL (1.4-7.4); Neutrophils % 64.5 % (38.7-73.9); Platelet Count 101 T/CUMM (130-400); Red Blood Count 4.59 MC/CUMM (3.8-5.5); Red Cell Distribution Width 13.9 % (9.3-17.3); White Blood Count 3.6 T/CUMM (4-12)
[2017-03-22 10:18] LABS: Albumin 4.3 G/DL (3.4-5.0); Bilirubin,Total 1.5 MG/DL (0.2-1.0); Calcium 9.1 MG/DL (8.5-10.1); Potassium 4.8 MMOL/L (3.5-5.1); Total Protein 7.3 G/DL (6.4-8.3)
[2017-03-22 10:28] LABS: Hypochromasia 1+
[~2017-04-04 06:15] MED LIST: ceFAZolin 1,000 MG in SYRINGE 1 EACH IV ONE
[2017-04-04] MEDS ORDERED: HEPARIN 5,000 UNIT/1 ML VIAL ONE (06:24)
[2017-04-04] MEDS ORDERED: THROMBIN TOPICAL (RECOMBINANT) 5,000 UNIT VIAL TOP ONE (06:24)
[2017-04-04] MEDS ORDERED: LIDOCAINE 2% TOP JELLY 20 ML VIAL INTRAURETH ONE (06:24)
[2017-04-04] MEDS ORDERED: TISSUE ADHESIVE 1 EACH APPLICATOR TOP ONE (06:24)
[2017-04-04] MEDS ORDERED: VANCOMYCIN 500 MG VIAL ONE (06:25)
[2017-04-04] MEDS ORDERED: ALBUMIN 5% 12.5 GM/250 ML VIAL IV ONE (06:56)
[2017-04-04] MEDS ORDERED: NITROGLYCERIN DRIP 50 MG/250 ML BOTTLE IV ONE (06:56)
[2017-04-04] MEDS ORDERED: PHENYLEPHRINE DRIP 20 MG/250 ML PREMIX IV ONE ×2 (06:56→14:55)
[2017-04-04] MEDS ORDERED: ROCURONIUM 100 MG/10 ML VIAL IV ONE ×2 (06:57→14:56)
[2017-04-04] MEDS ORDERED: ceFAZolin 1,000 MG VIAL ONE (06:58)
[2017-04-04] MEDS ORDERED: DIAZEPAM 5 MG TABLET ONE (07:03)
[2017-04-04] MEDS ORDERED: PANTOPRAZOLE 40 MG VIAL IV ONE ×2 (07:03→07:51)
[2017-04-04] MEDS: LACTATED RINGERS 1,000 ML IV SCH ×2 (07:20→08:00)
[2017-04-04] MEDS ORDERED: HEPARIN/NACL 0.9% 2 UNITS/ML 3,000 ML IV ONE (07:26)
[2017-04-04] MEDS ORDERED: DIAZEPAM 5 MG TABLET PO ONE (07:52)
[2017-04-04] MEDS ORDERED: HYDROmorphone 2 MG/1 ML VIAL IV PRN (13:45)
[2017-04-04] MEDS ORDERED: ONDANSETRON 4 MG/2 ML VIAL IV PRN ×2 (13:45→15:31)
[2017-04-04] MEDS ORDERED: LORazepam 1 MG TABLET PO PRN (13:49)
[2017-04-04] MEDS ORDERED: METHOCARBAMOL 750 MG TABLET PO PRN (13:49)
[2017-04-04] MEDS ORDERED: HydrOXYzine PAMOATE 25 MG CAPSULE PO PRN (13:49)
[2017-04-04] MEDS ORDERED: tiZANidine 4 MG TABLET PO PRN (13:49)
[2017-04-04] MEDS ORDERED: AMITRIPTYLINE 25 MG TABLET PO SCH (14:00)
[2017-04-04] MEDS ORDERED: PROPOFOL 200 MG/20 ML VIAL IV ONE (14:55)
[2017-04-04] MEDS ORDERED: methylPREDNISolone SOD SUC 125 MG/2 ML VIAL ONE (14:56)
[2017-04-04] MEDS ORDERED: GLYCOPYRROLATE 0.4 MG/2 ML VIAL ONE (14:56)
[2017-04-04] MEDS ORDERED: NEOSTIGMINE 10 MG/10 ML VIAL ONE (14:56)
[2017-04-04] MEDS ORDERED: fentaNYL 100 MCG/2 ML VIAL ONE (14:56)
[2017-04-04] MEDS ORDERED: ONDANSETRON 4 MG/2 ML VIAL ONE ×2 (14:56→15:25)
[2017-04-04] MEDS ORDERED: diphenhydrAMINE 50 MG/1 ML VIAL ONE (14:56)
[2017-04-04] MEDS ORDERED: LACTATED RINGERS 2,000 ML IV ONE (14:57)
[2017-04-04] MEDS ORDERED: HYDROmorphone 2 MG/1 ML VIAL ONE (15:25)
[2017-04-04] MEDS: HYDROmorphone 2 MG/1 ML VIAL IV PRN ×2 (15:28→15:48)
[2017-04-04 15:42] LABS: Hematocrit 39.9 VOL% (42.0-52.0); Hemoglobin 14.1 GM/DL (14.0-18.0)
[2017-04-04] MEDS ORDERED: POLYVINYL ALCOHOL 1.4% OPH SOLN 15 ML BOTTLE LEFT EYE ONE (15:44)
[2017-04-04 16:10] LABS: Calcium 8.1 MG/DL (8.5-10.1); Osmolality,Calculated 284.1 MOS/KG (273-304); Potassium 4.2 MMOL/L (3.5-5.1)
[2017-04-04] MEDS: DEXTROSE 5% NACL 0.45% 1,000 ML IV SCH (18:00)
[2017-04-04] MEDS: GABAPENTIN 400 MG CAPSULE PO SCH ×2 (19:42→21:25)
[2017-04-04] MEDS ORDERED: MIRTAZAPINE 30 MG TABLET PO SCH (21:00)
[2017-04-04] MEDS: CARVEDILOL 6.25 MG TABLET PO SCH (21:25)
[2017-04-04] MEDS: CILOSTAZOL 50 MG TABLET PO SCH (21:25)
[2017-04-05] MEDS: DEXTROSE 5% NACL 0.45% 1,000 ML IV SCH ×2 (02:27→10:58)
[2017-04-05 07:12] LABS: Basophils % 0.2 % (0.0-0.8); Hemoglobin 12.3 GM/DL (14.0-18.0); Immature Granulocytes % 0.5 %; Immature Granulocytes Absolute 0.03 #; Lymphocytes # 0.7 10*3/uL (1.4-4.0); Lymphocytes % 9.9 % (21.2-54.2); Mean Corpuscular HGB Conc 34.2 GM/DL (32-36); Mean Corpuscular Hemoglobin 31 PG (27-34); Mean Corpuscular Volume 90.9 FL (87-102); Mean Platelet Volume 9.4 FL (9.6-12.0); Monocytes # 0.5 10*3/uL (0.11-0.8); Monocytes % 7.8 % (1.7-12.7); Neutrophils # 5.4 10*3/uL (1.4-7.4); Neutrophils % 81.6 % (38.7-73.9); Platelet Count 103 T/CUMM (130-400); Red Blood Count 3.96 MC/CUMM (3.8-5.5); Red Cell Distribution Width 13.6 % (9.3-17.3); White Blood Count 6.6 T/CUMM (4-12)
[2017-04-05 07:41] LABS: Hypochromasia Slight; Macrocytosis 1+; Osmolality,Calculated 282.4 MOS/KG (273-304); Potassium 4.1 MMOL/L (3.5-5.1)
[2017-04-05] MEDS ORDERED: CLOPIDOGREL 75 MG TABLET PO SCH (09:00)
[2017-04-05] MEDS ORDERED: PANTOPRAZOLE 40 MG TABLET PO SCH (09:00)
[2017-04-05] MEDS ORDERED: FUROSEMIDE 20 MG TABLET PO SCH (09:00)
[2017-04-05] MEDS ORDERED: ROSUVASTATIN 10 MG TABLET PO SCH (09:00)
[2017-04-05] MEDS ORDERED: FOSINOPRIL 10 MG TABLET PO SCH (09:00)
[2017-04-05] MEDS ORDERED: FENOFIBRATE 160 MG TABLET PO SCH (09:00)
[2017-04-05] MEDS ORDERED: ASPIRIN EC 325 MG TABLET PO SCH (09:00)
[2017-04-05] MEDS: LACTATED RINGERS 1,000 ML IV SCH ×2 (10:19)
[2017-04-05] MEDS: ERYTHROMYCIN 0.5% OPHT OINT 3.5 GM TUBE LEFT EYE SCH ×2 (10:24→17:29)
[2017-04-05] MEDS: GABAPENTIN 400 MG CAPSULE PO SCH ×2 (10:24→15:09)
[2017-04-05] MEDS: CILOSTAZOL 50 MG TABLET PO SCH (10:24)
[2017-04-05] MEDS: CARVEDILOL 6.25 MG TABLET PO SCH (10:24)
[2017-04-05] MEDS ORDERED: MAGNESIUM HYDROXIDE SUSP 30 ML UDCUP PO PRN (10:37)
[2017-04-05 16:35] VITALS: BP 121/70
== END 2017-04-05 18:05 | disposition home or self-care (01) | DRG 269 ==
LOC: N.SDSINP 06:15 → N.RAD 06:15 → N.SDSINP 13:46 → N.3E 16:42
PROVIDERS: ADMIT Surgery; ATTEND Surgery
PROC: IRERAAA (2017-04-04 11:20)

== ENCOUNTER 2019-12-25 10:17 | Inpatient (IN) ==
[2019-12-25 10:37] LABS: Basophils % 0.2 % (0.0-0.8); Hematocrit 35.7 VOL% (42.0-52.0); Hemoglobin 11.9 GM/DL (14.0-18.0); Immature Granulocytes Absolute 0.08 #; Lymphocytes # 0.7 10*3/uL (1.4-4.0); Lymphocytes % 8.5 % (21.2-54.2); Mean Corpuscular HGB Conc 33.3 GM/DL (32-36); Mean Corpuscular Volume 91.8 FL (87-102); Mean Platelet Volume 9.9 FL (9.6-12.0); Neutrophils % 77.3 % (38.7-73.9); Platelet Count 163 T/CUMM (130-400); Red Blood Count 3.89 MC/CUMM (3.8-5.5); White Blood Count 8.1 T/CUMM (4-12)
[2019-12-25 11:14] LABS: Albumin 3.5 G/DL (3.4-5.0); Bilirubin,Total 1.8 MG/DL (0.2-1.0); Calcium 9.2 MG/DL (8.5-10.1); Osmolality,Calculated 268.7 MOS/KG (273-304); Total Protein 7.3 G/DL (6.4-8.3)
[2019-12-25] MEDS ORDERED: ONDANSETRON 4 MG/2 ML VIAL IV PRN (12:42)
[2019-12-25] MEDS ORDERED: ACETAMINOPHEN 325 MG TABLET PO PRN (12:42)
[2019-12-25] MEDS ORDERED: ENOXAPARIN 30 MG/0.3 ML SYRINGE SUBCUT SCH (13:00)
[2019-12-25] MEDS ORDERED: SODIUM CHLORIDE 0.9% 1,000 ML IV STA (13:20)
[2019-12-25] MEDS: SODIUM CHLORIDE 0.9% 1,000 ML IV SCH (15:39)
[2019-12-25] MEDS: oxyCODONE/ACETAMINOPHEN 5-325 MG TABLET PO PRN (15:41)
[2019-12-25] MEDS ORDERED: CYCLOBENZAPRINE 10 MG TABLET PO PRN (15:57)
[2019-12-25] MEDS: PREGABALIN 50 MG CAPSULE PO SCH (16:40)
[2019-12-25] MEDS: NYSTATIN 500,000 UNIT/5 ML UDCUP SWISH/SWAL SCH (16:40)
[2019-12-25] MEDS ORDERED: PANTOPRAZOLE 40 MG VIAL IV ONE (16:59)
[2019-12-25] MEDS ORDERED: oxyCODONE/ACETAMINOPHEN 5-325 MG TABLET PO SCH (17:00)
[2019-12-25] MEDS ORDERED: LEVALBUTEROL 1.25 MG/3 ML NEB RESP TX ONE (20:17)
[2019-12-25] MEDS ORDERED: HEPARIN DRIP 25,000 UNITS/500 ML PREMIX IV SCH (20:30)
[2019-12-25 20:38] LABS: Allen Test Positive
[2019-12-25 20:39] LABS: ABG Base Excess 0.6 MMOL/L (-2.5-2.5); ABG HCO3 27.8 MMOL/L (20-26); ABG PCO2 56.4 MM HG (35-48); ABG TCO2 29.5 MMOL/L (23-27)
[2019-12-25 20:40] LABS: ABG PO2 19.5 MM HG (80-95)
[2019-12-25] MEDS ORDERED: ETOMIDATE 20 MG/10 ML VIAL IV ONE ×4 (21:02→21:29)
[2019-12-25] MEDS ORDERED: SUCCINYLCHOLINE 200 MG/10 ML VIAL IV ONE ×2 (21:02→21:29)
[2019-12-25] MEDS ORDERED: MIDAZOLAM 2 MG/2 ML VIAL IV ONE (21:02)
[2019-12-25] MEDS ORDERED: MIDAZOLAM 2 MG/2 ML VIAL ONE (21:11)
[2019-12-25] MEDS ORDERED: SUCCINYLCHOLINE 200 MG/10 ML VIAL ONE (21:12)
[2019-12-25] MEDS ORDERED: SODIUM CHLORIDE 0.9% 1,000 ML IV ONE (21:57)
[2019-12-25] MEDS ORDERED: NOREPINEPHRINE 8 MG in SODIUM CHLORIDE 0.9% 242 ML IV PRN (21:58)
[2019-12-25] MEDS: fentaNYL INJ 1,250 MCG in SODIUM CHLORIDE 0.9% 225 ML IV PRN (22:20)
[2019-12-25] MEDS ORDERED: ENOXAPARIN 30 MG/0.3 ML SYRINGE IV ONE (22:30)
[2019-12-25 22:32] LABS: ABG Base Excess 0.4 MMOL/L (-2.5-2.5); ABG HCO3 24.8 MMOL/L (20-26); ABG PCO2 35.8 MM HG (35-48); ABG PH 7.438 (7.35-7.45); ABG TCO2 21.6 MMOL/L (23-27); Allen Test Positive; Pt O2 Delivery Device Ventilator
[2019-12-26] MEDS: NYSTATIN 500,000 UNIT/5 ML UDCUP SWISH/SWAL SCH ×5 (00:07→21:29)
[2019-12-26] MEDS: MIRTAZAPINE 15 MG TABLET PO SCH ×2 (00:07→21:28)
[2019-12-26] MEDS: GABAPENTIN 400 MG CAPSULE PO SCH ×4 (00:07→21:28)
[2019-12-26] MEDS: cilostazoL 50 MG TABLET PO SCH ×3 (00:08→21:28)
[2019-12-26] MEDS: carvediloL 6.25 MG TABLET PO SCH ×2 (00:08→08:52)
[2019-12-26] MEDS: busPIRone 5 MG TABLET PO SCH ×4 (00:08→21:28)
[2019-12-26] MEDS: DOCUSATE SODIUM 100 MG CAPSULE PO SCH ×3 (00:08→21:28)
[2019-12-26] MEDS: SODIUM CHLORIDE 0.9% 1,000 ML IV SCH ×6 (01:39→21:55)
[2019-12-26 05:07] LABS: ABG Base Excess -0.2 MMOL/L (-2.5-2.5); ABG HCO3 24.3 MMOL/L (20-26); ABG Oxygen Saturation 99.3 % (95-100); ABG PCO2 37.1 MM HG (35-48); ABG PH 7.419 (7.35-7.45); ABG TCO2 21.7 MMOL/L (23-27); Allen Test Positive; Pt O2 Delivery Device Ventilator
[2019-12-26 05:26] LABS: Basophils % 0.2 % (0.0-0.8); Hematocrit 28.7 VOL% (42.0-52.0); Hemoglobin 9.7 GM/DL (14.0-18.0); Immature Granulocytes % 0.5 %; Immature Granulocytes Absolute 0.03 #; Lymphocytes # 0.8 10*3/uL (1.4-4.0); Lymphocytes % 12.7 % (21.2-54.2); Mean Corpuscular HGB Conc 33.8 GM/DL (32-36); Mean Corpuscular Volume 90.8 FL (87-102); Mean Platelet Volume 10.3 FL (9.6-12.0); Monocytes % 11.6 % (1.7-12.7); Platelet Count 154 T/CUMM (130-400); Red Blood Count 3.16 MC/CUMM (3.8-5.5)
[2019-12-26 05:42] LABS: Albumin 2.6 G/DL (3.4-5.0); Bilirubin,Total 1.6 MG/DL (0.2-1.0); Calcium 8.2 MG/DL (8.5-10.1); Osmolality,Calculated 272.2 MOS/KG (273-304); Total Protein 6.4 G/DL (6.4-8.3)
[2019-12-26] MEDS: PREGABALIN 50 MG CAPSULE PO SCH ×2 (05:47→16:01)
[2019-12-26 05:58] LABS: HDL Cholesterol 14 MG/DL (40-60); Risk Ratio 5.14; Triglycerides 130 MG/DL (2-150)
[2019-12-26 06:02] LABS: Troponin I 0.644 NG/ML (0.00-0.045)
[2019-12-26] MEDS: fentaNYL INJ 1,250 MCG in SODIUM CHLORIDE 0.9% 225 ML IV PRN ×2 (06:57→13:35)
[2019-12-26] MEDS: ROSUVASTATIN 10 MG TABLET PO SCH (08:30)
[2019-12-26] MEDS: FENOFIBRATE 160 MG TABLET PO SCH (08:31)
[2019-12-26] MEDS: ASPIRIN 325 MG TABLET PO SCH (08:31)
[2019-12-26] MEDS ORDERED: PANTOPRAZOLE 40 MG TABLET PO SCH (09:00)
[2019-12-26] MEDS: ENOXAPARIN 40 MG/0.4 ML SYRINGE SUBCUT SCH (09:02)
[2019-12-26] MEDS: cefTRIAXone 1,000 MG in SYRINGE 1 EACH IV SCH (09:42)
[2019-12-26] MEDS: methylPREDNISolone SOD SUC 40 MG/1 ML VIAL IV SCH ×2 (09:43→16:33)
[2019-12-26] MEDS: PANTOPRAZOLE 40 MG VIAL IV SCH (10:44)
[2019-12-26] MEDS ORDERED: MIDAZOLAM 2 MG/2 ML VIAL IV ONE (14:44)
[2019-12-26] MEDS: MIDAZOLAM 100 MG in SODIUM CHLORIDE 0.9% 80 ML IV PRN (15:16)
[2019-12-26] MEDS ORDERED: ATROPINE 1 MG/10 ML SYRINGE IV PRN ×2 (16:27→19:17)
[2019-12-26] MEDS: INSULIN LISPRO 100 UNIT/ML SUBCUT SCH (18:06)
[2019-12-26] MEDS: tiZANidine 4 MG TABLET PO PRN (21:28)
[2019-12-26] MEDS: oxyCODONE/ACETAMINOPHEN 5-325 MG TABLET PO PRN (21:29)
[2019-12-27 00:24] LABS: Ferritin 632.2 ng/ml (26-388)
[2019-12-27] MEDS: INSULIN LISPRO 100 UNIT/ML SUBCUT SCH ×4 (00:55→17:37)
[2019-12-27] MEDS: methylPREDNISolone SOD SUC 40 MG/1 ML VIAL IV SCH ×3 (00:56→17:33)
[2019-12-27 05:06] LABS: ABG Base Excess -1.8 MMOL/L (-2.5-2.5); ABG HCO3 22.7 MMOL/L (20-26); ABG Oxygen Saturation 97.4 % (95-100); ABG PCO2 37.3 MM HG (35-48); ABG PH 7.402 (7.35-7.45); ABG PO2 104.8 MM HG (80-95); ABG TCO2 23.8 MMOL/L (23-27)
[2019-12-27 05:07] LABS: Allen Test Positive; Pt O2 Delivery Device Ventilator
[2019-12-27 05:35] LABS: Hemoglobin 9.5 GM/DL (14.0-18.0); Immature Granulocytes % 0.4 %; Immature Granulocytes Absolute 0.01 #; Lymphocytes # 0.3 10*3/uL (1.4-4.0); Lymphocytes % 10.7 % (21.2-54.2); Mean Corpuscular HGB Conc 32.8 GM/DL (32-36); Mean Corpuscular Volume 91.8 FL (87-102); Mean Platelet Volume 10.3 FL (9.6-12.0); Neutrophils % 83.9 % (38.7-73.9); Platelet Count 138 T/CUMM (130-400); Red Blood Count 3.16 MC/CUMM (3.8-5.5); Red Cell Distribution Width 13.6 % (9.3-17.3); White Blood Count 2.6 T/CUMM (4-12)
[2019-12-27 06:01] LABS: Calcium 8.4 MG/DL (8.5-10.1); Osmolality,Calculated 289.4 MOS/KG (273-304)
[2019-12-27] MEDS: fentaNYL INJ 1,250 MCG in SODIUM CHLORIDE 0.9% 225 ML IV PRN ×2 (06:04→20:24)
[2019-12-27] MEDS: PREGABALIN 50 MG CAPSULE PO SCH ×2 (06:05→17:13)
[2019-12-27] MEDS: SODIUM CHLORIDE 0.9% 1,000 ML IV SCH ×3 (06:09→20:43)
[2019-12-27] MEDS: GABAPENTIN 400 MG CAPSULE PO SCH ×3 (08:57→20:23)
[2019-12-27] MEDS: DOCUSATE SODIUM 100 MG CAPSULE PO SCH ×2 (08:58→20:24)
[2019-12-27] MEDS: FENOFIBRATE 160 MG TABLET PO SCH (09:22)
[2019-12-27] MEDS: NYSTATIN 500,000 UNIT/5 ML UDCUP SWISH/SWAL SCH ×4 (09:22→20:23)
[2019-12-27] MEDS: ASPIRIN 325 MG TABLET PO SCH (09:22)
[2019-12-27] MEDS: ROSUVASTATIN 10 MG TABLET PO SCH (09:22)
[2019-12-27] MEDS: busPIRone 5 MG TABLET PO SCH ×3 (09:22→20:24)
[2019-12-27] MEDS: cefTRIAXone 1,000 MG in SYRINGE 1 EACH IV SCH (09:23)
[2019-12-27] MEDS: INSULIN GLARGINE 100 UNIT/ML SUBCUT SCH (09:23)
[2019-12-27] MEDS: cilostazoL 50 MG TABLET PO SCH ×2 (09:23→20:24)
[2019-12-27] MEDS: ENOXAPARIN 40 MG/0.4 ML SYRINGE SUBCUT SCH (09:23)
[2019-12-27] MEDS: PANTOPRAZOLE 40 MG VIAL IV SCH (09:23)
[2019-12-27] MEDS ORDERED: SERTRALINE 25 MG TABLET PO ONE (11:05)
[2019-12-27] MEDS ORDERED: POTASSIUM CHLORIDE 20 MEQ/15 ML UDCUP PER TUBE PRN (14:11)
[2019-12-27] MEDS: SERTRALINE 25 MG TABLET PO SCH (20:24)
[2019-12-27] MEDS: MIRTAZAPINE 15 MG TABLET PO SCH (20:24)
[2019-12-27] MEDS: AMITRIPTYLINE 25 MG TABLET PO PRN ×2 (20:24→20:39)
[2019-12-27] MEDS: MIDAZOLAM 100 MG in SODIUM CHLORIDE 0.9% 80 ML IV PRN (20:45)
[2019-12-28] MEDS: methylPREDNISolone SOD SUC 40 MG/1 ML VIAL IV SCH ×2 (02:00→09:09)
[2019-12-28] MEDS: INSULIN LISPRO 100 UNIT/ML SUBCUT SCH ×5 (02:00→21:19)
[2019-12-28 04:44] LABS: ABG Base Excess 1.9 MMOL/L (-2.5-2.5); ABG HCO3 26.2 MMOL/L (20-26); ABG Oxygen Saturation 98.3 % (95-100); ABG PCO2 39.6 MM HG (35-48); ABG PH 7.438 (7.35-7.45); ABG TCO2 27.4 MMOL/L (23-27)
[2019-12-28 05:28] LABS: Basophils % 0.2 % (0.0-0.8); Hematocrit 29.6 VOL% (42.0-52.0); Hemoglobin 9.6 GM/DL (14.0-18.0); Immature Granulocytes % 0.5 %; Immature Granulocytes Absolute 0.03 #; Lymphocytes # 0.4 10*3/uL (1.4-4.0); Lymphocytes % 7.2 % (21.2-54.2); Mean Corpuscular HGB Conc 32.4 GM/DL (32-36); Mean Corpuscular Volume 90.5 FL (87-102); Mean Platelet Volume 10.7 FL (9.6-12.0); Monocytes % 6.5 % (1.7-12.7); Neutrophils % 85.6 % (38.7-73.9); Platelet Count 181 T/CUMM (130-400); Red Blood Count 3.27 MC/CUMM (3.8-5.5); White Blood Count 5.7 T/CUMM (4-12)
[2019-12-28 05:48] LABS: Calcium 8.5 MG/DL (8.5-10.1); Osmolality,Calculated 294.8 MOS/KG (273-304)
[2019-12-28] MEDS: fentaNYL INJ 1,250 MCG in SODIUM CHLORIDE 0.9% 225 ML IV PRN (06:02)
[2019-12-28] MEDS: PREGABALIN 50 MG CAPSULE PO SCH ×3 (06:03→18:07)
[2019-12-28] MEDS: FENOFIBRATE 160 MG TABLET PO SCH (08:43)
[2019-12-28] MEDS: GABAPENTIN 400 MG CAPSULE PO SCH ×3 (08:43→21:18)
[2019-12-28] MEDS: NYSTATIN 500,000 UNIT/5 ML UDCUP SWISH/SWAL SCH ×4 (08:43→21:19)
[2019-12-28] MEDS: ROSUVASTATIN 10 MG TABLET PO SCH (08:44)
[2019-12-28] MEDS: cilostazoL 50 MG TABLET PO SCH ×2 (08:44→21:18)
[2019-12-28] MEDS: busPIRone 5 MG TABLET PO SCH ×3 (08:44→21:18)
[2019-12-28] MEDS: ASPIRIN 325 MG TABLET PO SCH (08:44)
[2019-12-28] MEDS: DOCUSATE SODIUM 100 MG CAPSULE PO SCH ×2 (08:44→21:19)
[2019-12-28] MEDS: INSULIN GLARGINE 100 UNIT/ML SUBCUT SCH (08:44)
[2019-12-28] MEDS: PANTOPRAZOLE 40 MG VIAL IV SCH (08:45)
[2019-12-28] MEDS: cefTRIAXone 1,000 MG in SYRINGE 1 EACH IV SCH (08:45)
[2019-12-28] MEDS: ENOXAPARIN 40 MG/0.4 ML SYRINGE SUBCUT SCH (08:45)
[2019-12-28] MEDS: SODIUM CHLORIDE 0.9% 1,000 ML IV SCH (17:29)
[2019-12-28] MEDS: oxyCODONE/ACETAMINOPHEN 5-325 MG TABLET PO PRN (20:10)
[2019-12-28] MEDS ORDERED: methylPREDNISolone SOD SUC 40 MG/1 ML VIAL IV SCH (21:00)
[2019-12-28] MEDS: SERTRALINE 25 MG TABLET PO SCH (21:18)
[2019-12-28] MEDS: tiZANidine 4 MG TABLET PO PRN (21:18)
[2019-12-28] MEDS: MIRTAZAPINE 15 MG TABLET PO SCH (21:18)
[2019-12-28] MEDS: AMITRIPTYLINE 25 MG TABLET PO PRN (21:19)
[2019-12-29] MEDS: oxyCODONE/ACETAMINOPHEN 5-325 MG TABLET PO PRN ×2 (03:06→11:16)
[2019-12-29] MEDS: PREGABALIN 50 MG CAPSULE PO SCH ×2 (04:01→16:06)
[2019-12-29 04:19] LABS: Allen Test Positive
[2019-12-29 04:20] LABS: ABG Base Excess 4.5 MMOL/L (-2.5-2.5); ABG HCO3 28.4 MMOL/L (20-26); ABG PCO2 45.6 MM HG (35-48); ABG PH 7.421 (7.35-7.45); ABG PO2 87.5 MM HG (80-95); ABG TCO2 26.8 MMOL/L (23-27)
[2019-12-29 04:54] LABS: Basophils % 0.1 % (0.0-0.8); Hematocrit 32.2 VOL% (42.0-52.0); Hemoglobin 10.2 GM/DL (14.0-18.0); Immature Granulocytes Absolute 0.07 #; Lymphocytes # 0.5 10*3/uL (1.4-4.0); Lymphocytes % 6.9 % (21.2-54.2); Mean Corpuscular HGB Conc 31.7 GM/DL (32-36); Mean Corpuscular Volume 92.8 FL (87-102); Mean Platelet Volume 10.3 FL (9.6-12.0); Monocytes % 3.4 % (1.7-12.7); Neutrophils % 88.6 % (38.7-73.9); Platelet Count 171 T/CUMM (130-400); Red Blood Count 3.47 MC/CUMM (3.8-5.5); Red Cell Distribution Width 14.4 % (9.3-17.3); White Blood Count 7.1 T/CUMM (4-12)
[2019-12-29 05:11] LABS: Calcium 8.6 MG/DL (8.5-10.1)
[2019-12-29] MEDS ORDERED: ALBUTEROL/IPRATROPIUM 3 ML NEB RESP TX PRN (06:01)
[2019-12-29] MEDS: ALBUTEROL/IPRATROPIUM 3 ML NEB RESP TX SCH ×6 (06:16→23:40)
[2019-12-29] MEDS: INSULIN LISPRO 100 UNIT/ML SUBCUT SCH ×4 (09:36→21:45)
[2019-12-29] MEDS: DOCUSATE SODIUM 100 MG CAPSULE PO SCH ×2 (09:36→22:23)
[2019-12-29] MEDS: FENOFIBRATE 160 MG TABLET PO SCH (09:49)
[2019-12-29] MEDS: NYSTATIN 500,000 UNIT/5 ML UDCUP SWISH/SWAL SCH ×4 (09:49→22:22)
[2019-12-29] MEDS: busPIRone 5 MG TABLET PO SCH ×3 (09:49→22:23)
[2019-12-29] MEDS: ASPIRIN 325 MG TABLET PO SCH (09:49)
[2019-12-29] MEDS: cilostazoL 50 MG TABLET PO SCH ×2 (09:49→22:23)
[2019-12-29] MEDS: GABAPENTIN 400 MG CAPSULE PO SCH ×3 (09:49→22:23)
[2019-12-29] MEDS: ROSUVASTATIN 10 MG TABLET PO SCH (09:49)
[2019-12-29] MEDS: ENOXAPARIN 40 MG/0.4 ML SYRINGE SUBCUT SCH (09:50)
[2019-12-29] MEDS: cefTRIAXone 1,000 MG in SYRINGE 1 EACH IV SCH (09:50)
[2019-12-29] MEDS: PANTOPRAZOLE 40 MG VIAL IV SCH (09:51)
[2019-12-29] MEDS: methylPREDNISolone SOD SUC 40 MG/1 ML VIAL IV SCH ×3 (09:53→22:24)
[2019-12-29] MEDS: INSULIN GLARGINE 100 UNIT/ML SUBCUT SCH (09:54)
[2019-12-29] MEDS: LEVOFLOXACIN INJ 500 MG in PREMIX 1 EACH IV SCH (09:58)
[2019-12-29] MEDS: SODIUM CHLORIDE 0.9% 1,000 ML IV SCH (14:40)
[2019-12-29 15:02] LABS: CKMB % 1.6 %
[2019-12-29 15:05] LABS: Troponin I 1.6 NG/ML (0.00-0.045)
[2019-12-29] MEDS ORDERED: ALUMINUM/MAGNES/SIMETH MAX STR 30 ML UDCUP PO PRN (15:07)
[2019-12-29] MEDS: AMITRIPTYLINE 25 MG TABLET PO PRN (22:23)
[2019-12-29] MEDS: MIRTAZAPINE 15 MG TABLET PO SCH (22:23)
[2019-12-29] MEDS: SERTRALINE 25 MG TABLET PO SCH (22:23)
[2019-12-29] MEDS: tiZANidine 4 MG TABLET PO PRN (22:23)
[2019-12-30] MEDS: oxyCODONE/ACETAMINOPHEN 5-325 MG TABLET PO PRN ×2 (00:34→15:51)
[2019-12-30] MEDS: methylPREDNISolone SOD SUC 40 MG/1 ML VIAL IV SCH ×3 (03:00→20:52)
[2019-12-30] MEDS: ALBUTEROL/IPRATROPIUM 3 ML NEB RESP TX SCH ×6 (04:07→23:00)
[2019-12-30 04:25] LABS: Basophils % 0.1 % (0.0-0.8); Hematocrit 34.1 VOL% (42.0-52.0); Hemoglobin 10.9 GM/DL (14.0-18.0); Immature Granulocytes % 1.6 %; Immature Granulocytes Absolute 0.13 #; Lymphocytes # 0.5 10*3/uL (1.4-4.0); Lymphocytes % 6.3 % (21.2-54.2); Mean Corpuscular Volume 93.9 FL (87-102); Mean Platelet Volume 10.2 FL (9.6-12.0); Monocytes % 3.5 % (1.7-12.7); NRBC # 0.03 10*3/uL; Neutrophils % 88.5 % (38.7-73.9); Platelet Count 186 T/CUMM (130-400); Red Blood Count 3.63 MC/CUMM (3.8-5.5); Red Cell Distribution Width 13.9 % (9.3-17.3); White Blood Count 8.1 T/CUMM (4-12)
[2019-12-30 04:53] LABS: Calcium 9.1 MG/DL (8.5-10.1); Osmolality,Calculated 286.3 MOS/KG (273-304)
[2019-12-30] MEDS: PREGABALIN 50 MG CAPSULE PO SCH ×2 (06:04→15:54)
[2019-12-30] MEDS: INSULIN LISPRO 100 UNIT/ML SUBCUT SCH ×4 (07:30→21:12)
[2019-12-30] MEDS: ENOXAPARIN 40 MG/0.4 ML SYRINGE SUBCUT SCH (09:00)
[2019-12-30] MEDS: busPIRone 5 MG TABLET PO SCH ×3 (09:00→20:51)
[2019-12-30] MEDS: NYSTATIN 500,000 UNIT/5 ML UDCUP SWISH/SWAL SCH ×4 (09:05→20:51)
[2019-12-30] MEDS: ASPIRIN 325 MG TABLET PO SCH (09:05)
[2019-12-30] MEDS: DOCUSATE SODIUM 100 MG CAPSULE PO SCH ×2 (09:05→20:51)
[2019-12-30] MEDS: PANTOPRAZOLE 40 MG TABLET PO SCH (09:10)
[2019-12-30] MEDS: FENOFIBRATE 160 MG TABLET PO SCH (09:16)
[2019-12-30] MEDS: GABAPENTIN 400 MG CAPSULE PO SCH ×3 (09:16→20:51)
[2019-12-30] MEDS: cilostazoL 50 MG TABLET PO SCH ×2 (09:17→20:51)
[2019-12-30] MEDS: ROSUVASTATIN 10 MG TABLET PO SCH (09:17)
[2019-12-30] MEDS: cefTRIAXone 1,000 MG in SYRINGE 1 EACH IV SCH (09:21)
[2019-12-30] MEDS: LEVOFLOXACIN INJ 500 MG in PREMIX 1 EACH IV SCH (09:29)
[2019-12-30] MEDS: INSULIN GLARGINE 100 UNIT/ML SUBCUT SCH (13:07)
[2019-12-30] MEDS: SODIUM CHLORIDE 0.9% 1,000 ML IV SCH (14:51)
[2019-12-30 15:47] LABS: Troponin I 0.872 NG/ML (0.00-0.045)
[2019-12-30] MEDS: SERTRALINE 25 MG TABLET PO SCH (20:52)
[2019-12-30] MEDS: MIRTAZAPINE 15 MG TABLET PO SCH (20:52)
[2019-12-30] MEDS: carvediloL 6.25 MG TABLET PO SCH (21:11)
[2019-12-31] MEDS: ALBUTEROL/IPRATROPIUM 3 ML NEB RESP TX SCH ×5 (03:00→19:42)
[2019-12-31] MEDS: PREGABALIN 50 MG CAPSULE PO SCH ×2 (03:55→18:02)
[2019-12-31 06:24] LABS: Calcium 9.1 MG/DL (8.5-10.1); Osmolality,Calculated 283.4 MOS/KG (273-304)
[2019-12-31 06:33] LABS: Troponin I 0.683 NG/ML (0.00-0.045)
[2019-12-31] MEDS: INSULIN LISPRO 100 UNIT/ML SUBCUT SCH ×4 (08:55→23:07)
[2019-12-31] MEDS: methylPREDNISolone SOD SUC 40 MG/1 ML VIAL IV SCH ×2 (08:56→21:05)
[2019-12-31] MEDS: cefTRIAXone 1,000 MG in SYRINGE 1 EACH IV SCH (08:56)
[2019-12-31] MEDS: ENOXAPARIN 40 MG/0.4 ML SYRINGE SUBCUT SCH (08:57)
[2019-12-31] MEDS: GABAPENTIN 400 MG CAPSULE PO SCH ×3 (11:28→20:59)
[2019-12-31] MEDS: FENOFIBRATE 160 MG TABLET PO SCH (11:28)
[2019-12-31] MEDS: busPIRone 5 MG TABLET PO SCH ×3 (11:29→21:05)
[2019-12-31] MEDS: ROSUVASTATIN 10 MG TABLET PO SCH (11:29)
[2019-12-31] MEDS: ASPIRIN 325 MG TABLET PO SCH (11:29)
[2019-12-31] MEDS: DOCUSATE SODIUM 100 MG CAPSULE PO SCH ×2 (11:29→21:05)
[2019-12-31] MEDS: NYSTATIN 500,000 UNIT/5 ML UDCUP SWISH/SWAL SCH ×4 (11:29→20:59)
[2019-12-31] MEDS: carvediloL 6.25 MG TABLET PO SCH ×2 (11:29→21:00)
[2019-12-31] MEDS: PANTOPRAZOLE 40 MG TABLET PO SCH (11:29)
[2019-12-31] MEDS: cilostazoL 50 MG TABLET PO SCH ×2 (11:29→21:05)
[2019-12-31] MEDS: INSULIN GLARGINE 100 UNIT/ML SUBCUT SCH (11:30)
[2019-12-31] MEDS: LEVOFLOXACIN INJ 500 MG in PREMIX 1 EACH IV SCH (11:31)
[2019-12-31] MEDS: SODIUM CHLORIDE 0.9% 1,000 ML IV SCH (15:49)
[2019-12-31] MEDS: oxyCODONE/ACETAMINOPHEN 5-325 MG TABLET PO PRN ×2 (15:50→20:59)
[2019-12-31] MEDS: tiZANidine 4 MG TABLET PO PRN (21:00)
[2019-12-31] MEDS: SERTRALINE 25 MG TABLET PO SCH (21:00)
[2019-12-31] MEDS: AMITRIPTYLINE 25 MG TABLET PO PRN (21:00)
[2019-12-31] MEDS: MIRTAZAPINE 15 MG TABLET PO SCH (21:05)
[2020-01-01] MEDS: ALBUTEROL/IPRATROPIUM 3 ML NEB RESP TX SCH ×6 (00:23→19:59)
[2020-01-01] MEDS: oxyCODONE/ACETAMINOPHEN 5-325 MG TABLET PO PRN ×3 (03:47→21:07)
[2020-01-01] MEDS: PREGABALIN 50 MG CAPSULE PO SCH ×2 (03:48→17:58)
[2020-01-01] MEDS: INSULIN LISPRO 100 UNIT/ML SUBCUT SCH ×3 (07:49→18:01)
[2020-01-01] MEDS: cefTRIAXone 1,000 MG in SYRINGE 1 EACH IV SCH (09:25)
[2020-01-01] MEDS: ENOXAPARIN 40 MG/0.4 ML SYRINGE SUBCUT SCH (09:25)
[2020-01-01] MEDS: GABAPENTIN 400 MG CAPSULE PO SCH ×3 (09:26→21:06)
[2020-01-01] MEDS: INSULIN GLARGINE 100 UNIT/ML SUBCUT SCH (09:26)
[2020-01-01] MEDS: busPIRone 5 MG TABLET PO SCH ×3 (09:26→21:08)
[2020-01-01] MEDS: FENOFIBRATE 160 MG TABLET PO SCH (09:26)
[2020-01-01] MEDS: PANTOPRAZOLE 40 MG TABLET PO SCH (09:26)
[2020-01-01] MEDS: ASPIRIN 325 MG TABLET PO SCH (09:26)
[2020-01-01] MEDS: NYSTATIN 500,000 UNIT/5 ML UDCUP SWISH/SWAL SCH ×4 (09:27→21:08)
[2020-01-01] MEDS: DOCUSATE SODIUM 100 MG CAPSULE PO SCH ×2 (09:27→21:08)
[2020-01-01] MEDS: cilostazoL 50 MG TABLET PO SCH ×2 (09:27→21:07)
[2020-01-01] MEDS: ROSUVASTATIN 10 MG TABLET PO SCH (09:27)
[2020-01-01] MEDS: carvediloL 6.25 MG TABLET PO SCH ×2 (09:27→21:08)
[2020-01-01] MEDS: LEVOFLOXACIN INJ 500 MG in PREMIX 1 EACH IV SCH (09:29)
[2020-01-01] MEDS: predniSONE 10 MG TABLET PO SCH (09:34)
[2020-01-01] MEDS: valACYclovir 500 MG TABLET PO SCH ×3 (09:34→21:50)
[2020-01-01 11:04] LABS: Apearance,Urine CLEAR (Clear); Bilirubin,Urine Negative (Negative); Blood, Urine Negative (Negative); Glucose,Urine (UA) Negative (Negative); Ketones,Urine Negative (Negative); Mucus,Urine Occasional /LPF (Occasional); Nitrite,Urine Negative (Negative); Protein,Urine Negative; RBC,Urine 2 /HPF (0-4); Squamous Epithelial Cell,Urine Occasional /HPF (0-10); Urine Color Yellow (Yellow); Urine Specific Gravity 1.016 (1.001-1.035); WBC,Urine 4 /HPF (0-6)
[2020-01-01] MEDS: SODIUM CHLORIDE 0.9% 1,000 ML IV SCH (15:29)
[2020-01-01] MEDS: MIRTAZAPINE 15 MG TABLET PO SCH (21:07)
[2020-01-01] MEDS: AMITRIPTYLINE 25 MG TABLET PO PRN (21:08)
[2020-01-01] MEDS: tiZANidine 4 MG TABLET PO PRN (21:08)
[2020-01-01] MEDS: SERTRALINE 25 MG TABLET PO SCH (21:08)
[2020-01-02] MEDS: ALBUTEROL/IPRATROPIUM 3 ML NEB RESP TX SCH ×7 (00:21→23:32)
[2020-01-02] MEDS: INSULIN LISPRO 100 UNIT/ML SUBCUT SCH ×4 (01:43→18:14)
[2020-01-02] MEDS: PREGABALIN 50 MG CAPSULE PO SCH ×2 (03:54→16:26)
[2020-01-02] MEDS: oxyCODONE/ACETAMINOPHEN 5-325 MG TABLET PO PRN ×3 (03:54→22:31)
[2020-01-02 06:15] LABS: Basophils % 0.5 % (0.0-0.8); Eosinophils # 0.1 10*3/uL (0.0-0.87); Eosinophils % 1.2 % (0.00-10.9); Hematocrit 41.7 VOL% (42.0-52.0); Hemoglobin 13.2 GM/DL (14.0-18.0); Immature Granulocytes % 4.7 %; Immature Granulocytes Absolute 0.28 #; Lymphocytes # 1.7 10*3/uL (1.4-4.0); Lymphocytes % 29.2 % (21.2-54.2); Mean Corpuscular HGB Conc 31.7 GM/DL (32-36); Mean Corpuscular Volume 94.3 FL (87-102); Mean Platelet Volume 10.2 FL (9.6-12.0); Monocytes % 10.3 % (1.7-12.7); Neutrophils % 54.1 % (38.7-73.9); Platelet Count 196 T/CUMM (130-400); Red Blood Count 4.42 MC/CUMM (3.8-5.5); Red Cell Distribution Width 14.7 % (9.3-17.3); White Blood Count 5.9 T/CUMM (4-12)
[2020-01-02 06:48] LABS: Osmolality,Calculated 281.5 MOS/KG (273-304)
[2020-01-02] MEDS: PANTOPRAZOLE 40 MG TABLET PO SCH (08:29)
[2020-01-02] MEDS: FENOFIBRATE 160 MG TABLET PO SCH (08:29)
[2020-01-02] MEDS: ASPIRIN 325 MG TABLET PO SCH (08:29)
[2020-01-02] MEDS: carvediloL 6.25 MG TABLET PO SCH ×2 (08:29→20:47)
[2020-01-02] MEDS: GABAPENTIN 400 MG CAPSULE PO SCH ×3 (08:29→20:47)
[2020-01-02] MEDS: cilostazoL 50 MG TABLET PO SCH ×2 (08:29→20:46)
[2020-01-02] MEDS: LIDOCAINE 5% PATCH TRANSDERM SCH (08:29)
[2020-01-02] MEDS: busPIRone 5 MG TABLET PO SCH ×3 (08:30→20:47)
[2020-01-02] MEDS: INSULIN GLARGINE 100 UNIT/ML SUBCUT SCH (08:30)
[2020-01-02] MEDS: predniSONE 10 MG TABLET PO SCH (08:30)
[2020-01-02] MEDS: ROSUVASTATIN 10 MG TABLET PO SCH (08:30)
[2020-01-02] MEDS: ENOXAPARIN 40 MG/0.4 ML SYRINGE SUBCUT SCH (08:31)
[2020-01-02] MEDS: cefTRIAXone 1,000 MG in SYRINGE 1 EACH IV SCH (08:31)
[2020-01-02] MEDS: valACYclovir 500 MG TABLET PO SCH ×3 (08:31→20:46)
[2020-01-02] MEDS: LEVOFLOXACIN INJ 500 MG in PREMIX 1 EACH IV SCH (08:39)
[2020-01-02] MEDS: NYSTATIN 500,000 UNIT/5 ML UDCUP SWISH/SWAL SCH ×4 (08:40→20:48)
[2020-01-02] MEDS: DOCUSATE SODIUM 100 MG CAPSULE PO SCH ×2 (08:40→20:52)
[2020-01-02] MEDS: SODIUM CHLORIDE 0.9% 1,000 ML IV SCH (15:10)
[2020-01-02] MEDS: AMITRIPTYLINE 25 MG TABLET PO PRN (20:46)
[2020-01-02] MEDS: SERTRALINE 25 MG TABLET PO SCH (20:47)
[2020-01-02] MEDS: tiZANidine 4 MG TABLET PO PRN (20:47)
[2020-01-02] MEDS: MIRTAZAPINE 15 MG TABLET PO SCH (20:52)
[2020-01-03] MEDS: INSULIN LISPRO 100 UNIT/ML SUBCUT SCH ×2 (02:57→08:43)
[2020-01-03] MEDS: ALBUTEROL/IPRATROPIUM 3 ML NEB RESP TX SCH ×2 (03:58→07:27)
[2020-01-03] MEDS: oxyCODONE/ACETAMINOPHEN 5-325 MG TABLET PO PRN (04:46)
[2020-01-03] MEDS: PREGABALIN 50 MG CAPSULE PO SCH (04:47)
[2020-01-03] MEDS: DOCUSATE SODIUM 100 MG CAPSULE PO SCH (08:25)
[2020-01-03] MEDS: LIDOCAINE 5% PATCH TRANSDERM SCH (08:25)
[2020-01-03] MEDS: valACYclovir 500 MG TABLET PO SCH (08:26)
[2020-01-03] MEDS: FENOFIBRATE 160 MG TABLET PO SCH (08:26)
[2020-01-03] MEDS: ROSUVASTATIN 10 MG TABLET PO SCH (08:26)
[2020-01-03] MEDS: PANTOPRAZOLE 40 MG TABLET PO SCH (08:26)
[2020-01-03] MEDS: NYSTATIN 500,000 UNIT/5 ML UDCUP SWISH/SWAL SCH (08:26)
[2020-01-03] MEDS: carvediloL 6.25 MG TABLET PO SCH (08:27)
[2020-01-03] MEDS: ENOXAPARIN 40 MG/0.4 ML SYRINGE SUBCUT SCH (08:27)
[2020-01-03] MEDS: predniSONE 10 MG TABLET PO SCH (08:27)
[2020-01-03] MEDS: ASPIRIN 325 MG TABLET PO SCH (08:27)
[2020-01-03] MEDS: cilostazoL 50 MG TABLET PO SCH (08:27)
[2020-01-03] MEDS: busPIRone 5 MG TABLET PO SCH (08:28)
[2020-01-03] MEDS: GABAPENTIN 400 MG CAPSULE PO SCH (08:35)
[2020-01-03] MEDS: LEVOFLOXACIN INJ 500 MG in PREMIX 1 EACH IV SCH (08:36)
[2020-01-03] MEDS: INSULIN GLARGINE 100 UNIT/ML SUBCUT SCH (08:44)
[2020-01-03 10:49] VITALS: BP 123/93
== END 2020-01-03 11:15 | disposition home health service (06) | DRG 208 ==
LOC: N.ED 10:17 → N.EDINP 10:17 → SUATTDRO 13:00 → N.TELES 14:30 → N.ICU 20:37 → SUATTDRO 12-26 15:27 → N.4E 12-30 19:22
PROVIDERS: ADMIT Internal Medicine; ATTEND Internal Medicine

== ENCOUNTER 2020-01-14 10:41 | Inpatient (IN) ==
[2020-01-14] MEDS ORDERED: SODIUM CHLORIDE 0.9% 2,700 ML IV ONE (11:17)
[2020-01-14] MEDS ORDERED: ACETAMINOPHEN 500 MG TABLET ONE (11:23)
[2020-01-14 11:26] LABS: Basophils % 0.3 % (0.0-0.8); Eosinophils % 0.3 % (0.00-10.9); Hemoglobin 13.1 GM/DL (14.0-18.0); Immature Granulocytes % 0.5 %; Immature Granulocytes Absolute 0.04 #; Lymphocytes # 0.5 10*3/uL (1.4-4.0); Lymphocytes % 7.4 % (21.2-54.2); Mean Corpuscular HGB Conc 32.8 GM/DL (32-36); Mean Platelet Volume 9.1 FL (9.6-12.0); Monocytes % 7.4 % (1.7-12.7); Neutrophils % 84.1 % (38.7-73.9); Platelet Count 103 T/CUMM (130-400); Red Cell Distribution Width 15.9 % (9.3-17.3); White Blood Count 7.3 T/CUMM (4-12)
[2020-01-14 11:32] LABS: INR 1.2; PT Patient Result 12.6 SECS (9.8-11.9); Partial Thromboplastin Time 31.8 SECS (23.9-33.8)
[2020-01-14] MEDS ORDERED: ACETAMINOPHEN 500 MG TABLET PO STA (11:35)
[2020-01-14 11:37] LABS: Albumin 3.4 G/DL (3.4-5.0); Bilirubin,Total 1.6 MG/DL (0.2-1.0); Calcium 8.8 MG/DL (8.5-10.1); Total Protein 7.3 G/DL (6.4-8.3)
[2020-01-14 11:42] LABS: Hypochromasia 1+; Platelet Estimate Decreased
[2020-01-14] MEDS ORDERED: SODIUM CHLORIDE 0.9% 1,000 ML IV STA (13:07)
[2020-01-14] MEDS ORDERED: PIPERACILLIN/TAZOBACTAM 3,375 MG in SODIUM CHLORIDE 0.9% 100 ML IV STA (14:39)
[2020-01-14 16:03] LABS: Apearance,Urine CLEAR (Clear); Bilirubin,Urine Negative (Negative); Blood, Urine Negative (Negative); Glucose,Urine (UA) Negative (Negative); Ketones,Urine Negative (Negative); Mucus,Urine Occasional /LPF (Occasional); Nitrite,Urine Negative (Negative); Protein,Urine 30 MG/DL; RBC,Urine 4 /HPF (0-4); Urine Color Amber (Yellow); Urine Specific Gravity 1.024 (1.001-1.035); WBC,Urine 2 /HPF (0-6)
[2020-01-14 16:26] LABS: Barbiturates Screen,Urine Negative (Negative); Benzodiazepines Screen,Urine Negative (Negative); Cannabinoid Screen,Urine Negative (Negative); Opiate Screen,Urine Positive (Negative); Phencyclidine Screen,Urine Negative (Negative)
[2020-01-14] MEDS ORDERED: oxyCODONE/ACETAMINOPHEN 5-325 MG TABLET ONE (17:23)
[2020-01-14] MEDS ORDERED: ONDANSETRON 4 MG/2 ML VIAL IV PRN (18:23)
[2020-01-14] MEDS: SODIUM CHLORIDE 0.9% 1,000 ML IV SCH (18:51)
[2020-01-14] MEDS: ACETAMINOPHEN 325 MG TABLET PO PRN (19:25)
[2020-01-14] MEDS: DOCUSATE SODIUM 100 MG CAPSULE PO SCH (22:08)
[2020-01-14] MEDS: MIRTAZAPINE 15 MG TABLET PO SCH (22:09)
[2020-01-14] MEDS: oxyCODONE/ACETAMINOPHEN 5-325 MG TABLET PO PRN (23:33)
[2020-01-14] MEDS: PIPERACILLIN/TAZOBACTAM 3,375 MG in SODIUM CHLORIDE 0.9% 100 ML IV SCH (23:34)
[2020-01-15 05:54] LABS: Basophils % 0.4 % (0.0-0.8); Eosinophils % 0.2 % (0.00-10.9); Hematocrit 37.5 VOL% (42.0-52.0); Hemoglobin 12.1 GM/DL (14.0-18.0); Immature Granulocytes % 0.6 %; Immature Granulocytes Absolute 0.03 #; Lymphocytes # 0.4 10*3/uL (1.4-4.0); Lymphocytes % 8.5 % (21.2-54.2); Mean Corpuscular HGB Conc 32.3 GM/DL (32-36); Mean Corpuscular Volume 94.5 FL (87-102); Mean Platelet Volume 9.4 FL (9.6-12.0); Monocytes % 9.1 % (1.7-12.7); Neutrophils % 81.2 % (38.7-73.9); Red Blood Count 3.97 MC/CUMM (3.8-5.5); Red Cell Distribution Width 15.9 % (9.3-17.3); White Blood Count 5.2 T/CUMM (4-12)
[2020-01-15 05:58] LABS: Platelet Count 86 T/CUMM (130-400)
[2020-01-15] MEDS: oxyCODONE/ACETAMINOPHEN 5-325 MG TABLET PO PRN ×3 (06:00→19:39)
[2020-01-15 06:14] LABS: Osmolality,Calculated 272.1 MOS/KG (273-304)
[2020-01-15 06:20] LABS: Hypochromasia 1+; Microcytosis Slight; Platelet Estimate Decreased
[2020-01-15] MEDS: PIPERACILLIN/TAZOBACTAM 3,375 MG in SODIUM CHLORIDE 0.9% 100 ML IV SCH ×3 (06:48→22:19)
[2020-01-15] MEDS: SODIUM CHLORIDE 0.9% 1,000 ML IV SCH (08:03)
[2020-01-15] MEDS: MORPHINE 4 MG/1 ML VIAL IV PRN (14:04)
[2020-01-15] MEDS ORDERED: LORazepam 2 MG/1 ML VIAL IV ONE (14:48)
[2020-01-15] MEDS: busPIRone 5 MG TABLET PO SCH ×2 (17:37→22:22)
[2020-01-15] MEDS: DOCUSATE SODIUM 100 MG CAPSULE PO SCH ×2 (17:37→22:21)
[2020-01-15] MEDS: GABAPENTIN 400 MG CAPSULE PO SCH ×3 (17:37→22:21)
[2020-01-15] MEDS: PREGABALIN 50 MG CAPSULE PO SCH ×2 (17:37→22:21)
[2020-01-15] MEDS: ASPIRIN 325 MG TABLET PO SCH (17:37)
[2020-01-15] MEDS: ROSUVASTATIN 10 MG TABLET PO SCH (17:37)
[2020-01-15] MEDS: carvediloL 6.25 MG TABLET PO SCH ×2 (17:37→22:21)
[2020-01-15] MEDS: PANTOPRAZOLE 40 MG TABLET PO SCH (17:38)
[2020-01-15] MEDS: FENOFIBRATE 160 MG TABLET PO SCH (17:38)
[2020-01-15] MEDS: cilostazoL 50 MG TABLET PO SCH ×2 (17:38→22:22)
[2020-01-15] MEDS: AMITRIPTYLINE 25 MG TABLET PO PRN (19:34)
[2020-01-15] MEDS: MIRTAZAPINE 15 MG TABLET PO SCH (22:21)
[2020-01-15] MEDS: SERTRALINE 25 MG TABLET PO SCH (22:22)
[2020-01-16] MEDS: SODIUM CHLORIDE 0.9% 1,000 ML IV SCH ×3 (01:32→06:30)
[2020-01-16 05:37] LABS: Basophils % 0.3 % (0.0-0.8); Eosinophils % 0.6 % (0.00-10.9); Hemoglobin 10.9 GM/DL (14.0-18.0); Immature Granulocytes % 0.3 %; Immature Granulocytes Absolute 0.01 #; Lymphocytes # 0.4 10*3/uL (1.4-4.0); Lymphocytes % 12.1 % (21.2-54.2); Mean Corpuscular HGB Conc 31.1 GM/DL (32-36); Mean Corpuscular Volume 97.2 FL (87-102); Mean Platelet Volume 9.7 FL (9.6-12.0); Monocytes % 13.3 % (1.7-12.7); Neutrophils % 73.4 % (38.7-73.9); Platelet Count 76 T/CUMM (130-400); Red Cell Distribution Width 15.9 % (9.3-17.3); White Blood Count 3.2 T/CUMM (4-12)
[2020-01-16 05:55] LABS: Band Neutrophils 2 % (0-10); Hypochromasia 1+; Lymphocytes 7 % (20-55); Microcytosis 1+; Ovalocytes Slight; Platelet Estimate Decreased; Segmented Neutrophils 81 % (50-85); Total Cells Counted 100
[2020-01-16 05:59] LABS: Albumin 2.9 G/DL (3.4-5.0); Calcium 9.2 MG/DL (8.5-10.1); Osmolality,Calculated 275.8 MOS/KG (273-304); Total Protein 6.9 G/DL (6.4-8.3)
[2020-01-16] MEDS: PIPERACILLIN/TAZOBACTAM 3,375 MG in SODIUM CHLORIDE 0.9% 100 ML IV SCH ×3 (06:05→23:45)
[2020-01-16] MEDS: ACETAMINOPHEN 325 MG TABLET PO PRN ×2 (08:35→16:26)
[2020-01-16] MEDS ORDERED: LORazepam 2 MG/1 ML VIAL IV ONE (09:06)
[2020-01-16] MEDS: GABAPENTIN 400 MG CAPSULE PO SCH ×3 (15:29→20:27)
[2020-01-16] MEDS: oxyCODONE/ACETAMINOPHEN 5-325 MG TABLET PO PRN (16:25)
[2020-01-16] MEDS: ASPIRIN 325 MG TABLET PO SCH (19:27)
[2020-01-16] MEDS: busPIRone 5 MG TABLET PO SCH ×2 (19:27→20:27)
[2020-01-16] MEDS: FENOFIBRATE 160 MG TABLET PO SCH (19:28)
[2020-01-16] MEDS: PANTOPRAZOLE 40 MG TABLET PO SCH (19:28)
[2020-01-16] MEDS: PREGABALIN 50 MG CAPSULE PO SCH ×2 (19:28→20:27)
[2020-01-16] MEDS: cilostazoL 50 MG TABLET PO SCH ×2 (19:28→20:27)
[2020-01-16] MEDS: carvediloL 6.25 MG TABLET PO SCH ×2 (19:28→20:27)
[2020-01-16] MEDS: DOCUSATE SODIUM 100 MG CAPSULE PO SCH ×2 (19:28→20:27)
[2020-01-16] MEDS: ROSUVASTATIN 10 MG TABLET PO SCH (19:28)
[2020-01-16] MEDS: tiZANidine 4 MG TABLET PO PRN (20:27)
[2020-01-16] MEDS: MIRTAZAPINE 15 MG TABLET PO SCH (20:27)
[2020-01-16] MEDS: SERTRALINE 25 MG TABLET PO SCH (20:27)
[2020-01-17] MEDS: oxyCODONE/ACETAMINOPHEN 5-325 MG TABLET PO PRN ×3 (02:30→20:13)
[2020-01-17] MEDS: SODIUM CHLORIDE 0.9% 1,000 ML IV SCH ×3 (02:30→23:20)
[2020-01-17 06:21] LABS: Eosinophils % 0.3 % (0.00-10.9); Hematocrit 32.4 VOL% (42.0-52.0); Hemoglobin 10.2 GM/DL (14.0-18.0); Immature Granulocytes % 0.7 %; Immature Granulocytes Absolute 0.02 #; Lymphocytes # 0.4 10*3/uL (1.4-4.0); Lymphocytes % 14.4 % (21.2-54.2); Mean Corpuscular HGB Conc 31.5 GM/DL (32-36); Mean Corpuscular Volume 95.6 FL (87-102); Mean Platelet Volume 10.5 FL (9.6-12.0); Monocytes % 13.1 % (1.7-12.7); Neutrophils % 71.5 % (38.7-73.9); Platelet Count 83 T/CUMM (130-400); Red Blood Count 3.39 MC/CUMM (3.8-5.5); Red Cell Distribution Width 15.9 % (9.3-17.3)
[2020-01-17] MEDS: PIPERACILLIN/TAZOBACTAM 3,375 MG in SODIUM CHLORIDE 0.9% 100 ML IV SCH ×3 (06:30→23:20)
[2020-01-17 06:55] LABS: Band Neutrophils 3 % (0-10); Hypochromasia 2+; Lymphocytes 13 % (20-55); Platelet Estimate Decreased; Polychromasia 1+; Segmented Neutrophils 70 % (50-85); Total Cells Counted 100
[2020-01-17] MEDS: DOCUSATE SODIUM 100 MG CAPSULE PO SCH ×2 (10:19→20:14)
[2020-01-17] MEDS: ASPIRIN 325 MG TABLET PO SCH (10:20)
[2020-01-17] MEDS: ROSUVASTATIN 10 MG TABLET PO SCH (10:20)
[2020-01-17] MEDS: busPIRone 5 MG TABLET PO SCH ×3 (10:22→20:14)
[2020-01-17] MEDS: GABAPENTIN 400 MG CAPSULE PO SCH ×3 (10:25→20:14)
[2020-01-17] MEDS: cilostazoL 50 MG TABLET PO SCH ×2 (10:26→20:14)
[2020-01-17] MEDS: carvediloL 6.25 MG TABLET PO SCH ×2 (10:27→20:14)
[2020-01-17] MEDS: PANTOPRAZOLE 40 MG TABLET PO SCH (10:27)
[2020-01-17] MEDS: FENOFIBRATE 160 MG TABLET PO SCH (10:44)
[2020-01-17] MEDS: PREGABALIN 50 MG CAPSULE PO SCH ×2 (10:44→20:14)
[2020-01-17] MEDS: SERTRALINE 25 MG TABLET PO SCH (20:14)
[2020-01-17] MEDS: tiZANidine 4 MG TABLET PO PRN (20:14)
[2020-01-17] MEDS: MIRTAZAPINE 15 MG TABLET PO SCH (20:14)
[2020-01-18 05:54] LABS: Hematocrit 27.5 VOL% (42.0-52.0); Hemoglobin 8.7 GM/DL (14.0-18.0); Immature Granulocytes % 0.3 %; Immature Granulocytes Absolute 0.01 #; Lymphocytes # 0.5 10*3/uL (1.4-4.0); Lymphocytes % 14.3 % (21.2-54.2); Mean Corpuscular HGB Conc 31.6 GM/DL (32-36); Mean Corpuscular Volume 92.6 FL (87-102); Mean Platelet Volume 10.8 FL (9.6-12.0); Monocytes % 15.8 % (1.7-12.7); Neutrophils % 69.6 % (38.7-73.9); Platelet Count 85 T/CUMM (130-400); Red Blood Count 2.97 MC/CUMM (3.8-5.5); White Blood Count 3.3 T/CUMM (4-12)
[2020-01-18 06:11] LABS: Albumin 2.2 G/DL (3.4-5.0); Calcium 8.6 MG/DL (8.5-10.1); Total Protein 5.7 G/DL (6.4-8.3)
[2020-01-18 07:20] LABS: Lymphocytes 15 % (20-55); Schistocytes Slight; Segmented Neutrophils 77 % (50-85); Total Cells Counted 100
[2020-01-18 07:22] LABS: Hypochromasia 1+; Microcytosis 2+; Platelet Estimate Adequate
[2020-01-18] MEDS: PIPERACILLIN/TAZOBACTAM 3,375 MG in SODIUM CHLORIDE 0.9% 100 ML IV SCH ×2 (07:33→15:27)
[2020-01-18] MEDS: busPIRone 5 MG TABLET PO SCH ×4 (08:50→21:20)
[2020-01-18] MEDS: ASPIRIN 325 MG TABLET PO SCH ×2 (08:50→12:42)
[2020-01-18] MEDS: PREGABALIN 50 MG CAPSULE PO SCH ×3 (08:51→21:20)
[2020-01-18] MEDS: DOCUSATE SODIUM 100 MG CAPSULE PO SCH ×2 (08:51→21:20)
[2020-01-18] MEDS: FENOFIBRATE 160 MG TABLET PO SCH ×2 (08:51→12:42)
[2020-01-18] MEDS: carvediloL 6.25 MG TABLET PO SCH ×3 (08:51→21:20)
[2020-01-18] MEDS: cilostazoL 50 MG TABLET PO SCH ×3 (08:51→21:20)
[2020-01-18] MEDS: ROSUVASTATIN 10 MG TABLET PO SCH ×2 (08:51→12:43)
[2020-01-18] MEDS: GABAPENTIN 400 MG CAPSULE PO SCH ×3 (08:51→21:20)
[2020-01-18] MEDS: PANTOPRAZOLE 40 MG TABLET PO SCH (08:51)
[2020-01-18] MEDS: SODIUM CHLORIDE 0.9% 1,000 ML IV SCH ×2 (15:27→15:48)
[2020-01-18] MEDS: oxyCODONE/ACETAMINOPHEN 5-325 MG TABLET PO PRN (15:55)
[2020-01-18 18:25] LABS: Apearance,Urine Slightly Hazy (Clear); Bilirubin,Urine Negative (Negative); Blood, Urine Large mg/dL (Negative); Glucose,Urine (UA) Negative (Negative); Ketones,Urine Negative (Negative); Mucus,Urine Occasional /LPF (Occasional); Nitrite,Urine Negative (Negative); Protein,Urine 30 MG/DL; RBC,Urine 3 /HPF (0-4); Urine Color Amber (Yellow); WBC,Urine 4 /HPF (0-6)
[2020-01-18] MEDS: SERTRALINE 25 MG TABLET PO SCH (21:20)
[2020-01-18] MEDS: MIRTAZAPINE 15 MG TABLET PO SCH (21:20)
[2020-01-19] MEDS: PIPERACILLIN/TAZOBACTAM 3,375 MG in SODIUM CHLORIDE 0.9% 100 ML IV SCH ×4 (00:30→22:55)
[2020-01-19 06:14] LABS: Basophils % 0.2 % (0.0-0.8); Hematocrit 32.2 VOL% (42.0-52.0); Hemoglobin 10.4 GM/DL (14.0-18.0); Immature Granulocytes % 0.6 %; Immature Granulocytes Absolute 0.03 #; Lymphocytes # 0.6 10*3/uL (1.4-4.0); Lymphocytes % 13.3 % (21.2-54.2); Mean Corpuscular HGB Conc 32.3 GM/DL (32-36); Mean Corpuscular Volume 91.7 FL (87-102); Mean Platelet Volume 10.8 FL (9.6-12.0); Monocytes % 11.7 % (1.7-12.7); Neutrophils % 74.2 % (38.7-73.9); Platelet Count 114 T/CUMM (130-400); Red Blood Count 3.51 MC/CUMM (3.8-5.5); Red Cell Distribution Width 16.1 % (9.3-17.3); White Blood Count 4.8 T/CUMM (4-12)
[2020-01-19 06:28] LABS: Albumin 2.3 G/DL (3.4-5.0); Calcium 8.6 MG/DL (8.5-10.1); Osmolality,Calculated 282.5 MOS/KG (273-304); Total Protein 6.3 G/DL (6.4-8.3)
[2020-01-19 07:00] LABS: Lymphocytes 17 % (20-55); Segmented Neutrophils 74 % (50-85); Total Cells Counted 100
[2020-01-19 07:01] LABS: Anisocytosis 1+; Platelet Estimate Adequate
[2020-01-19] MEDS: ASPIRIN 325 MG TABLET PO SCH (08:47)
[2020-01-19] MEDS: FENOFIBRATE 160 MG TABLET PO SCH (08:48)
[2020-01-19] MEDS: PANTOPRAZOLE 40 MG TABLET PO SCH (08:48)
[2020-01-19] MEDS: ROSUVASTATIN 10 MG TABLET PO SCH (08:50)
[2020-01-19] MEDS: PREGABALIN 50 MG CAPSULE PO SCH ×2 (08:51→20:48)
[2020-01-19] MEDS: busPIRone 5 MG TABLET PO SCH ×3 (08:51→20:48)
[2020-01-19] MEDS: GABAPENTIN 400 MG CAPSULE PO SCH ×3 (08:54→20:48)
[2020-01-19] MEDS ORDERED: POTASSIUM CHLORIDE 20 MEQ TABLET PO ONE (08:55)
[2020-01-19] MEDS: DOCUSATE SODIUM 100 MG CAPSULE PO SCH ×2 (08:55→20:48)
[2020-01-19] MEDS: cilostazoL 50 MG TABLET PO SCH ×2 (08:56→20:48)
[2020-01-19] MEDS ORDERED: ENOXAPARIN 40 MG/0.4 ML SYRINGE SUBCUT SCH (09:00)
[2020-01-19] MEDS: carvediloL 12.5 MG TABLET PO SCH ×2 (09:04→16:23)
[2020-01-19] MEDS ORDERED: MAGNESIUM SULF RIDER 2 GM in PREMIX 1 EACH IV ONE (09:57)
[2020-01-19] MEDS ORDERED: ENOXAPARIN 60 MG/0.6 ML SYRINGE SUBCUT ONE (09:57)
[2020-01-19] MEDS: MIRTAZAPINE 15 MG TABLET PO SCH (20:48)
[2020-01-19] MEDS: SERTRALINE 25 MG TABLET PO SCH (20:48)
[2020-01-19] MEDS: ENOXAPARIN 100 MG/ML SYRINGE SUBCUT SCH (20:48)
[2020-01-19] MEDS: SODIUM CHLORIDE 0.9% 1,000 ML IV SCH (22:55)
[2020-01-20] MEDS: ACETAMINOPHEN 325 MG TABLET PO PRN (02:10)
[2020-01-20] MEDS: PIPERACILLIN/TAZOBACTAM 3,375 MG in SODIUM CHLORIDE 0.9% 100 ML IV SCH ×2 (06:20→16:02)
[2020-01-20 06:31] LABS: Basophils % 0.2 % (0.0-0.8); Eosinophils % 0.4 % (0.00-10.9); Hematocrit 29.7 VOL% (42.0-52.0); Hemoglobin 9.5 GM/DL (14.0-18.0); Immature Granulocytes % 0.9 %; Immature Granulocytes Absolute 0.04 #; Lymphocytes # 0.8 10*3/uL (1.4-4.0); Lymphocytes % 16.1 % (21.2-54.2); Mean Corpuscular Volume 93.1 FL (87-102); Mean Platelet Volume 11.1 FL (9.6-12.0); Neutrophils % 70.4 % (38.7-73.9); Platelet Count 123 T/CUMM (130-400); Red Blood Count 3.19 MC/CUMM (3.8-5.5); Red Cell Distribution Width 15.9 % (9.3-17.3); White Blood Count 4.7 T/CUMM (4-12)
[2020-01-20 06:39] LABS: INR 1.2; PT Patient Result 12.7 SECS (9.8-11.9)
[2020-01-20 06:49] LABS: Albumin 2.1 G/DL (3.4-5.0); Bilirubin,Direct 0.51 MG/DL (0.0-0.20); Bilirubin,Indirect 0.5 MG/DL (0.0-1.0); Calcium 8.8 MG/DL (8.5-10.1); Osmolality,Calculated 283.4 MOS/KG (273-304)
[2020-01-20 06:53] LABS: Band Neutrophils 1 % (0-10); Hypochromasia 1+; Lymphocytes 14 % (20-55); Microcytosis 1+; Ovalocytes Slight; Segmented Neutrophils 76 % (50-85); Total Cells Counted 100
[2020-01-20] MEDS: oxyCODONE/ACETAMINOPHEN 5-325 MG TABLET PO PRN (08:14)
[2020-01-20] MEDS: ROSUVASTATIN 10 MG TABLET PO SCH (08:15)
[2020-01-20] MEDS: FENOFIBRATE 160 MG TABLET PO SCH (08:16)
[2020-01-20] MEDS: ASPIRIN 325 MG TABLET PO SCH (08:16)
[2020-01-20] MEDS: busPIRone 5 MG TABLET PO SCH ×3 (08:16→21:21)
[2020-01-20] MEDS: PREGABALIN 50 MG CAPSULE PO SCH ×2 (08:16→21:21)
[2020-01-20] MEDS: DOCUSATE SODIUM 100 MG CAPSULE PO SCH ×2 (08:17→21:21)
[2020-01-20] MEDS: cilostazoL 50 MG TABLET PO SCH ×2 (08:17→21:21)
[2020-01-20] MEDS: GABAPENTIN 400 MG CAPSULE PO SCH ×3 (08:17→21:21)
[2020-01-20] MEDS: PANTOPRAZOLE 40 MG TABLET PO SCH (08:17)
[2020-01-20] MEDS: carvediloL 12.5 MG TABLET PO SCH ×2 (08:17→17:50)
[2020-01-20] MEDS: ENOXAPARIN 100 MG/ML SYRINGE SUBCUT SCH ×2 (08:18→21:21)
[2020-01-20] MEDS ORDERED: LORazepam 1 MG TABLET PO ONE (11:55)
[2020-01-20] MEDS: ASCORBIC ACID 500 MG TABLET PO SCH (21:21)
[2020-01-20] MEDS: MIRTAZAPINE 15 MG TABLET PO SCH (21:21)
[2020-01-20] MEDS: AMIODARONE 200 MG TABLET PO SCH (21:21)
[2020-01-20] MEDS: SERTRALINE 25 MG TABLET PO SCH (21:22)
[2020-01-21] MEDS: PIPERACILLIN/TAZOBACTAM 3,375 MG in SODIUM CHLORIDE 0.9% 100 ML IV SCH ×2 (00:14→06:00)
[2020-01-21] MEDS: tiZANidine 4 MG TABLET PO PRN (01:40)
[2020-01-21] MEDS: oxyCODONE/ACETAMINOPHEN 5-325 MG TABLET PO PRN ×2 (01:40→21:11)
[2020-01-21 05:43] LABS: Basophils % 0.2 % (0.0-0.8); Eosinophils % 0.7 % (0.00-10.9); Hematocrit 27.9 VOL% (42.0-52.0); Hemoglobin 8.8 GM/DL (14.0-18.0); Immature Granulocytes % 0.9 %; Immature Granulocytes Absolute 0.04 #; Lymphocytes # 0.8 10*3/uL (1.4-4.0); Lymphocytes % 18.2 % (21.2-54.2); Mean Corpuscular HGB Conc 31.5 GM/DL (32-36); Mean Corpuscular Volume 94.3 FL (87-102); Mean Platelet Volume 10.9 FL (9.6-12.0); Monocytes % 11.4 % (1.7-12.7); Neutrophils % 68.6 % (38.7-73.9); Platelet Count 136 T/CUMM (130-400); Red Blood Count 2.96 MC/CUMM (3.8-5.5); White Blood Count 4.6 T/CUMM (4-12)
[2020-01-21 06:11] LABS: Lymphocytes 18 % (20-55); Nucleated Red Blood Cells 1 (0-5); Segmented Neutrophils 71 % (50-85); Total Cells Counted 100
[2020-01-21 06:12] LABS: Hypochromasia 1+; Microcytosis 1+; Platelet Estimate Adequate
[2020-01-21 06:18] LABS: Calcium 8.7 MG/DL (8.5-10.1); Osmolality,Calculated 282.4 MOS/KG (273-304)
[2020-01-21] MEDS ORDERED: LORazepam 2 MG/1 ML VIAL IV ONE (09:35)
[2020-01-21] MEDS: PANTOPRAZOLE 40 MG TABLET PO SCH (09:51)
[2020-01-21] MEDS: PREGABALIN 50 MG CAPSULE PO SCH ×2 (09:51→21:11)
[2020-01-21] MEDS: FENOFIBRATE 160 MG TABLET PO SCH (09:51)
[2020-01-21] MEDS: cilostazoL 50 MG TABLET PO SCH ×2 (09:51→21:11)
[2020-01-21] MEDS: AMIODARONE 200 MG TABLET PO SCH ×2 (09:52→22:16)
[2020-01-21] MEDS: ASCORBIC ACID 500 MG TABLET PO SCH ×2 (09:52→21:11)
[2020-01-21] MEDS: ROSUVASTATIN 10 MG TABLET PO SCH (09:52)
[2020-01-21] MEDS: carvediloL 12.5 MG TABLET PO SCH ×3 (09:52→16:23)
[2020-01-21] MEDS: DOCUSATE SODIUM 100 MG CAPSULE PO SCH ×2 (09:52→21:12)
[2020-01-21] MEDS: ASPIRIN 325 MG TABLET PO SCH (09:52)
[2020-01-21] MEDS: GABAPENTIN 400 MG CAPSULE PO SCH ×3 (09:52→21:11)
[2020-01-21] MEDS: busPIRone 5 MG TABLET PO SCH ×3 (09:52→21:11)
[2020-01-21] MEDS: ENOXAPARIN 100 MG/ML SYRINGE SUBCUT SCH (09:53)
[2020-01-21] MEDS: ceFAZolin 2,000 MG in PREMIX 1 EACH IV SCH ×2 (14:05→22:16)
[2020-01-21] MEDS: ENOXAPARIN 40 MG/0.4 ML SYRINGE SUBCUT SCH (17:17)
[2020-01-21] MEDS: SERTRALINE 25 MG TABLET PO SCH (21:10)
[2020-01-21] MEDS: MIRTAZAPINE 15 MG TABLET PO SCH (21:10)
[2020-01-22 05:47] LABS: Basophils % 0.3 % (0.0-0.8); Eosinophils % 0.5 % (0.00-10.9); Hematocrit 31.2 VOL% (42.0-52.0); Immature Granulocytes % 1.2 %; Immature Granulocytes Absolute 0.08 #; Lymphocytes # 1.3 10*3/uL (1.4-4.0); Lymphocytes % 20.1 % (21.2-54.2); Mean Corpuscular HGB Conc 32.1 GM/DL (32-36); Mean Platelet Volume 10.6 FL (9.6-12.0); Monocytes % 10.5 % (1.7-12.7); Neutrophils % 67.4 % (38.7-73.9); Platelet Count 190 T/CUMM (130-400); Red Blood Count 3.39 MC/CUMM (3.8-5.5); Red Cell Distribution Width 15.7 % (9.3-17.3); White Blood Count 6.6 T/CUMM (4-12)
[2020-01-22 06:22] LABS: Osmolality,Calculated 273.8 MOS/KG (273-304)
[2020-01-22 06:38] LABS: Anisocytosis 1+; Band Neutrophils 1 % (0-10); Lymphocytes 19 % (20-55); Ovalocytes 1+; Platelet Estimate Normal; Segmented Neutrophils 75 % (50-85); Total Cells Counted 100
[2020-01-22] MEDS: ceFAZolin 2,000 MG in PREMIX 1 EACH IV SCH ×3 (06:42→21:49)
[2020-01-22] MEDS ORDERED: LORazepam 2 MG/1 ML VIAL IV ONE (08:27)
[2020-01-22] MEDS: DOCUSATE SODIUM 100 MG CAPSULE PO SCH ×2 (08:34→21:52)
[2020-01-22] MEDS: busPIRone 5 MG TABLET PO SCH ×3 (08:34→21:52)
[2020-01-22] MEDS: ASCORBIC ACID 500 MG TABLET PO SCH ×2 (08:35→21:51)
[2020-01-22] MEDS: AMIODARONE 200 MG TABLET PO SCH ×2 (08:35→21:52)
[2020-01-22] MEDS: FENOFIBRATE 160 MG TABLET PO SCH (08:35)
[2020-01-22] MEDS: PANTOPRAZOLE 40 MG TABLET PO SCH (08:35)
[2020-01-22] MEDS: carvediloL 12.5 MG TABLET PO SCH ×2 (08:35→16:11)
[2020-01-22] MEDS: ROSUVASTATIN 10 MG TABLET PO SCH (08:35)
[2020-01-22] MEDS: cilostazoL 50 MG TABLET PO SCH ×2 (08:35→21:52)
[2020-01-22] MEDS: ASPIRIN 325 MG TABLET PO SCH (08:35)
[2020-01-22] MEDS: tiZANidine 4 MG TABLET PO PRN ×2 (08:36→18:11)
[2020-01-22] MEDS: GABAPENTIN 300 MG CAPSULE PO SCH ×3 (11:42→22:08)
[2020-01-22] MEDS: ENOXAPARIN 40 MG/0.4 ML SYRINGE SUBCUT SCH (18:10)
[2020-01-22] MEDS: ACETAMINOPHEN 325 MG TABLET PO PRN (18:11)
[2020-01-22] MEDS: SODIUM CHLORIDE 0.9% 1,000 ML IV SCH (21:48)
[2020-01-22] MEDS: MIRTAZAPINE 15 MG TABLET PO SCH (21:52)
[2020-01-22] MEDS: PREGABALIN 50 MG CAPSULE PO SCH (21:52)
[2020-01-22] MEDS: SERTRALINE 25 MG TABLET PO SCH (21:52)
[2020-01-22] MEDS: MORPHINE 4 MG/1 ML VIAL IV PRN (23:44)
[2020-01-23] MEDS: tiZANidine 4 MG TABLET PO PRN ×2 (02:55→09:45)
[2020-01-23] MEDS: ceFAZolin 2,000 MG in PREMIX 1 EACH IV SCH ×3 (05:14→21:16)
[2020-01-23 05:40] LABS: Basophils % 0.2 % (0.0-0.8); Eosinophils % 0.7 % (0.00-10.9); Hematocrit 27.4 VOL% (42.0-52.0); Hemoglobin 8.6 GM/DL (14.0-18.0); Immature Granulocytes % 1.9 %; Lymphocytes # 0.7 10*3/uL (1.4-4.0); Lymphocytes % 13.6 % (21.2-54.2); Mean Corpuscular HGB Conc 31.4 GM/DL (32-36); Mean Corpuscular Volume 91.9 FL (87-102); Mean Platelet Volume 10.5 FL (9.6-12.0); Monocytes % 9.1 % (1.7-12.7); Neutrophils % 74.5 % (38.7-73.9); Platelet Count 162 T/CUMM (130-400); Red Blood Count 2.98 MC/CUMM (3.8-5.5); Red Cell Distribution Width 15.7 % (9.3-17.3); White Blood Count 5.4 T/CUMM (4-12)
[2020-01-23 05:50] LABS: Calcium 8.5 MG/DL (8.5-10.1); Osmolality,Calculated 278.5 MOS/KG (273-304)
[2020-01-23 05:52] LABS: Albumin 1.9 G/DL (3.4-5.0); Bilirubin,Direct 0.41 MG/DL (0.0-0.20); Bilirubin,Indirect 1.4 MG/DL (0.0-1.0); Bilirubin,Total 1.8 MG/DL (0.2-1.0); Total Protein 5.7 G/DL (6.4-8.3)
[2020-01-23 06:04] LABS: Hypochromasia 1+; Lymphocytes 16 % (20-55); Microcytosis 1+; Ovalocytes Slight; Platelet Estimate Adequate; Segmented Neutrophils 75 % (50-85); Total Cells Counted 100
[2020-01-23] MEDS: FENOFIBRATE 160 MG TABLET PO SCH (08:10)
[2020-01-23] MEDS: AMIODARONE 200 MG TABLET PO SCH ×2 (08:10→21:18)
[2020-01-23] MEDS: ACETAMINOPHEN 325 MG TABLET PO PRN (08:10)
[2020-01-23] MEDS: ASPIRIN 325 MG TABLET PO SCH (08:11)
[2020-01-23] MEDS: carvediloL 12.5 MG TABLET PO SCH ×2 (08:11→17:18)
[2020-01-23] MEDS: cilostazoL 50 MG TABLET PO SCH ×2 (08:11→21:17)
[2020-01-23] MEDS: PANTOPRAZOLE 40 MG TABLET PO SCH (08:11)
[2020-01-23] MEDS: busPIRone 5 MG TABLET PO SCH ×3 (08:11→21:18)
[2020-01-23] MEDS: DOCUSATE SODIUM 100 MG CAPSULE PO SCH ×2 (08:11→21:18)
[2020-01-23] MEDS: ASCORBIC ACID 500 MG TABLET PO SCH ×2 (08:11→21:17)
[2020-01-23] MEDS: GABAPENTIN 300 MG CAPSULE PO SCH ×3 (08:11→21:18)
[2020-01-23] MEDS: ROSUVASTATIN 10 MG TABLET PO SCH (08:17)
[2020-01-23] MEDS: NYSTATIN 500,000 UNIT/5 ML UDCUP SWISH/SWAL SCH ×4 (09:45→21:18)
[2020-01-23] MEDS: oxyCODONE/ACETAMINOPHEN 5-325 MG TABLET PO PRN ×2 (14:37→21:21)
[2020-01-23] MEDS ORDERED: oxyCODONE/ACETAMINOPHEN 5-325 MG TABLET PO PRN (17:00)
[2020-01-23] MEDS ORDERED: POTASSIUM CHLORIDE 20 MEQ/15 ML UDCUP PO ONE (17:09)
[2020-01-23] MEDS: SERTRALINE 25 MG TABLET PO SCH (21:16)
[2020-01-23] MEDS: PREGABALIN 50 MG CAPSULE PO SCH (21:17)
[2020-01-23] MEDS: ENOXAPARIN 100 MG/ML SYRINGE SUBCUT SCH (21:18)
[2020-01-23] MEDS: MIRTAZAPINE 15 MG TABLET PO SCH (21:19)
[2020-01-24] MEDS: oxyCODONE/ACETAMINOPHEN 5-325 MG TABLET PO PRN ×4 (02:33→22:01)
[2020-01-24] MEDS: ceFAZolin 2,000 MG in PREMIX 1 EACH IV SCH ×3 (05:57→22:02)
[2020-01-24 07:04] LABS: Bilirubin,Total 0.7 MG/DL (0.2-1.0); Calcium 8.6 MG/DL (8.5-10.1); Osmolality,Calculated 279.4 MOS/KG (273-304)
[2020-01-24 08:52] LABS: Troponin I 0.059 NG/ML (0.00-0.045)
[2020-01-24] MEDS: cilostazoL 50 MG TABLET PO SCH ×2 (09:07→22:00)
[2020-01-24] MEDS: ASCORBIC ACID 500 MG TABLET PO SCH ×2 (09:07→22:00)
[2020-01-24] MEDS: ROSUVASTATIN 10 MG TABLET PO SCH (09:07)
[2020-01-24] MEDS: DOCUSATE SODIUM 100 MG CAPSULE PO SCH ×2 (09:07→22:01)
[2020-01-24] MEDS: ASPIRIN 325 MG TABLET PO SCH (09:08)
[2020-01-24] MEDS: FENOFIBRATE 160 MG TABLET PO SCH (09:08)
[2020-01-24] MEDS: AMIODARONE 200 MG TABLET PO SCH ×2 (09:08→22:01)
[2020-01-24] MEDS: PANTOPRAZOLE 40 MG TABLET PO SCH (09:08)
[2020-01-24] MEDS: GABAPENTIN 300 MG CAPSULE PO SCH ×3 (09:08→22:01)
[2020-01-24] MEDS: NYSTATIN 500,000 UNIT/5 ML UDCUP SWISH/SWAL SCH ×4 (09:09→22:02)
[2020-01-24] MEDS: carvediloL 12.5 MG TABLET PO SCH ×2 (09:09→17:54)
[2020-01-24] MEDS: busPIRone 5 MG TABLET PO SCH ×3 (09:09→22:01)
[2020-01-24] MEDS: ENOXAPARIN 100 MG/ML SYRINGE SUBCUT SCH ×2 (09:10→22:02)
[2020-01-24 11:53] LABS: Troponin I 0.057 NG/ML (0.00-0.045)
[2020-01-24 14:52] LABS: Troponin I 0.056 NG/ML (0.00-0.045)
[2020-01-24] MEDS: SODIUM CHLORIDE 0.9% 1,000 ML IV SCH (17:59)
[2020-01-24] MEDS: tiZANidine 4 MG TABLET PO PRN (19:42)
[2020-01-24] MEDS: MIRTAZAPINE 15 MG TABLET PO SCH (21:57)
[2020-01-24] MEDS: PREGABALIN 50 MG CAPSULE PO SCH (22:00)
[2020-01-24] MEDS: SERTRALINE 25 MG TABLET PO SCH (22:00)
[2020-01-24] MEDS: AMITRIPTYLINE 25 MG TABLET PO PRN (22:00)
[2020-01-25] MEDS: SODIUM CHLORIDE 0.9% 1,000 ML IV SCH ×4 (04:54→17:31)
[2020-01-25] MEDS: oxyCODONE/ACETAMINOPHEN 5-325 MG TABLET PO PRN ×3 (05:09→20:47)
[2020-01-25] MEDS: ceFAZolin 2,000 MG in PREMIX 1 EACH IV SCH ×3 (05:09→20:40)
[2020-01-25] MEDS: GABAPENTIN 300 MG CAPSULE PO SCH ×3 (10:11→20:44)
[2020-01-25] MEDS: ASCORBIC ACID 500 MG TABLET PO SCH ×2 (10:11→20:45)
[2020-01-25] MEDS: carvediloL 12.5 MG TABLET PO SCH ×2 (10:11→17:31)
[2020-01-25] MEDS: NYSTATIN 500,000 UNIT/5 ML UDCUP SWISH/SWAL SCH ×4 (10:11→20:45)
[2020-01-25] MEDS: ASPIRIN 325 MG TABLET PO SCH (10:11)
[2020-01-25] MEDS: PANTOPRAZOLE 40 MG TABLET PO SCH (10:11)
[2020-01-25] MEDS: DOCUSATE SODIUM 100 MG CAPSULE PO SCH ×2 (10:11→20:43)
[2020-01-25] MEDS: ROSUVASTATIN 10 MG TABLET PO SCH (10:12)
[2020-01-25] MEDS: busPIRone 5 MG TABLET PO SCH ×3 (10:12→20:42)
[2020-01-25] MEDS: AMIODARONE 200 MG TABLET PO SCH ×2 (10:12→20:45)
[2020-01-25] MEDS: FENOFIBRATE 160 MG TABLET PO SCH (10:12)
[2020-01-25] MEDS: cilostazoL 50 MG TABLET PO SCH ×2 (10:12→20:44)
[2020-01-25] MEDS: ENOXAPARIN 100 MG/ML SYRINGE SUBCUT SCH ×2 (10:12→20:46)
[2020-01-25] MEDS: PREGABALIN 50 MG CAPSULE PO SCH (20:44)
[2020-01-25] MEDS: MIRTAZAPINE 15 MG TABLET PO SCH (20:45)
[2020-01-25] MEDS: SERTRALINE 25 MG TABLET PO SCH (20:48)
[2020-01-26] MEDS: oxyCODONE/ACETAMINOPHEN 5-325 MG TABLET PO PRN ×2 (04:07→17:27)
[2020-01-26] MEDS: ceFAZolin 2,000 MG in PREMIX 1 EACH IV SCH ×3 (04:08→20:36)
[2020-01-26] MEDS: tiZANidine 4 MG TABLET PO PRN (05:08)
[2020-01-26 06:25] LABS: Basophils % 0.2 % (0.0-0.8); Eosinophils % 0.7 % (0.00-10.9); Hematocrit 29.4 VOL% (42.0-52.0); Hemoglobin 9.1 GM/DL (14.0-18.0); Immature Granulocytes % 1.8 %; Immature Granulocytes Absolute 0.08 #; Lymphocytes # 0.7 10*3/uL (1.4-4.0); Lymphocytes % 15.2 % (21.2-54.2); Mean Corpuscular Volume 93.9 FL (87-102); Mean Platelet Volume 9.9 FL (9.6-12.0); Neutrophils % 73.1 % (38.7-73.9); Platelet Count 207 T/CUMM (130-400); Red Blood Count 3.13 MC/CUMM (3.8-5.5); Red Cell Distribution Width 16.2 % (9.3-17.3); White Blood Count 4.3 T/CUMM (4-12)
[2020-01-26 06:41] LABS: Calcium 8.2 MG/DL (8.5-10.1); Osmolality,Calculated 284.1 MOS/KG (273-304)
[2020-01-26] MEDS: AMIODARONE 200 MG TABLET PO SCH ×2 (09:43→20:40)
[2020-01-26] MEDS: ASPIRIN 325 MG TABLET PO SCH (09:43)
[2020-01-26] MEDS: DOCUSATE SODIUM 100 MG CAPSULE PO SCH ×2 (09:43→20:40)
[2020-01-26] MEDS: GABAPENTIN 300 MG CAPSULE PO SCH ×3 (09:43→20:41)
[2020-01-26] MEDS: ROSUVASTATIN 10 MG TABLET PO SCH (09:43)
[2020-01-26] MEDS: ASCORBIC ACID 500 MG TABLET PO SCH ×2 (09:44→20:40)
[2020-01-26] MEDS: busPIRone 5 MG TABLET PO SCH ×3 (09:44→20:40)
[2020-01-26] MEDS: FENOFIBRATE 160 MG TABLET PO SCH (09:44)
[2020-01-26] MEDS: NYSTATIN 500,000 UNIT/5 ML UDCUP SWISH/SWAL SCH ×4 (09:44→20:39)
[2020-01-26] MEDS: cilostazoL 50 MG TABLET PO SCH ×2 (09:44→20:40)
[2020-01-26] MEDS: carvediloL 12.5 MG TABLET PO SCH ×2 (09:44→16:22)
[2020-01-26] MEDS: ENOXAPARIN 100 MG/ML SYRINGE SUBCUT SCH ×2 (09:44→20:42)
[2020-01-26] MEDS: PANTOPRAZOLE 40 MG TABLET PO SCH (09:44)
[2020-01-26] MEDS: traMADol 50 MG TABLET PO SCH ×2 (12:59→20:41)
[2020-01-26] MEDS: POTASSIUM CHLORIDE RIDER 10 MEQ in PREMIX 1 EACH IV SCH ×2 (13:02→14:02)
[2020-01-26 13:44] LABS: Troponin I 0.034 NG/ML (0.00-0.045)
[2020-01-26] MEDS: SODIUM CHLORIDE 0.9% 1,000 ML IV SCH (14:19)
[2020-01-26] MEDS: POTASSIUM CHLORIDE 10 MEQ TABLET PO SCH (20:40)
[2020-01-26] MEDS: PREGABALIN 50 MG CAPSULE PO SCH (20:40)
[2020-01-26] MEDS: MIRTAZAPINE 15 MG TABLET PO SCH (20:41)
[2020-01-26] MEDS: SERTRALINE 25 MG TABLET PO SCH (20:41)
[2020-01-27] MEDS: oxyCODONE/ACETAMINOPHEN 5-325 MG TABLET PO PRN ×2 (02:56→12:30)
[2020-01-27] MEDS: tiZANidine 4 MG TABLET PO PRN ×2 (04:59→23:04)
[2020-01-27] MEDS: ceFAZolin 2,000 MG in PREMIX 1 EACH IV SCH ×3 (04:59→21:27)
[2020-01-27 06:12] LABS: Basophils % 0.2 % (0.0-0.8); Eosinophils % 0.4 % (0.00-10.9); Hematocrit 31.7 VOL% (42.0-52.0); Hemoglobin 9.8 GM/DL (14.0-18.0); Immature Granulocytes % 1.6 %; Immature Granulocytes Absolute 0.08 #; Lymphocytes # 0.8 10*3/uL (1.4-4.0); Lymphocytes % 14.8 % (21.2-54.2); Mean Corpuscular HGB Conc 30.9 GM/DL (32-36); Mean Corpuscular Volume 94.6 FL (87-102); Mean Platelet Volume 9.9 FL (9.6-12.0); Monocytes % 7.4 % (1.7-12.7); Neutrophils % 75.6 % (38.7-73.9); Platelet Count 244 T/CUMM (130-400); Red Blood Count 3.35 MC/CUMM (3.8-5.5); Red Cell Distribution Width 16.2 % (9.3-17.3); White Blood Count 5.2 T/CUMM (4-12)
[2020-01-27 06:45] LABS: Calcium 8.8 MG/DL (8.5-10.1); Osmolality,Calculated 284.3 MOS/KG (273-304)
[2020-01-27] MEDS: ASPIRIN 325 MG TABLET PO SCH (09:44)
[2020-01-27] MEDS: carvediloL 12.5 MG TABLET PO SCH ×2 (09:45→18:09)
[2020-01-27] MEDS: busPIRone 5 MG TABLET PO SCH ×3 (09:45→21:30)
[2020-01-27] MEDS: DOCUSATE SODIUM 100 MG CAPSULE PO SCH ×2 (09:45→21:29)
[2020-01-27] MEDS: ROSUVASTATIN 10 MG TABLET PO SCH (09:46)
[2020-01-27] MEDS: AMIODARONE 200 MG TABLET PO SCH ×2 (09:46→21:30)
[2020-01-27] MEDS: POTASSIUM CHLORIDE 10 MEQ TABLET PO SCH ×2 (09:47→21:30)
[2020-01-27] MEDS: ENOXAPARIN 100 MG/ML SYRINGE SUBCUT SCH ×2 (09:47→21:28)
[2020-01-27] MEDS: NYSTATIN 500,000 UNIT/5 ML UDCUP SWISH/SWAL SCH ×4 (09:47→21:29)
[2020-01-27] MEDS: GABAPENTIN 300 MG CAPSULE PO SCH ×3 (09:48→21:29)
[2020-01-27] MEDS: PANTOPRAZOLE 40 MG TABLET PO SCH (09:49)
[2020-01-27] MEDS: cilostazoL 50 MG TABLET PO SCH ×2 (09:49→21:28)
[2020-01-27] MEDS: traMADol 50 MG TABLET PO SCH ×2 (09:51→21:28)
[2020-01-27] MEDS: FENOFIBRATE 160 MG TABLET PO SCH (09:51)
[2020-01-27] MEDS: ASCORBIC ACID 500 MG TABLET PO SCH ×2 (09:51→21:30)
[2020-01-27] MEDS: SODIUM CHLORIDE 0.9% 1,000 ML IV SCH (12:32)
[2020-01-27] MEDS: PREGABALIN 50 MG CAPSULE PO SCH (21:29)
[2020-01-27] MEDS: MIRTAZAPINE 15 MG TABLET PO SCH (21:30)
[2020-01-27] MEDS: SERTRALINE 25 MG TABLET PO SCH (21:30)
[2020-01-27] MEDS: ACETAMINOPHEN 325 MG TABLET PO PRN (23:04)
[2020-01-27] MEDS: AMITRIPTYLINE 25 MG TABLET PO PRN (23:04)
[2020-01-28] MEDS ORDERED: oxyCODONE/ACETAMINOPHEN 5-325 MG TABLET PO ONE (00:18)
[2020-01-28] MEDS ORDERED: ALUM/MAG/SIMETH/LIDO VISC 1:1 30 ML BOTTLE PO ONE (00:18)
[2020-01-28 01:13] LABS: Troponin I 0.034 NG/ML (0.00-0.045)
[2020-01-28] MEDS: ceFAZolin 2,000 MG in PREMIX 1 EACH IV SCH ×3 (04:08→22:03)
[2020-01-28] MEDS: GABAPENTIN 300 MG CAPSULE PO SCH ×3 (11:06→22:01)
[2020-01-28] MEDS: busPIRone 5 MG TABLET PO SCH ×3 (11:06→22:03)
[2020-01-28] MEDS: cilostazoL 50 MG TABLET PO SCH ×2 (11:06→22:02)
[2020-01-28] MEDS: DOCUSATE SODIUM 100 MG CAPSULE PO SCH ×2 (11:06→22:02)
[2020-01-28] MEDS: traMADol 50 MG TABLET PO SCH ×2 (11:06→22:02)
[2020-01-28] MEDS: AMIODARONE 200 MG TABLET PO SCH ×2 (11:06→22:01)
[2020-01-28] MEDS: ENOXAPARIN 100 MG/ML SYRINGE SUBCUT SCH ×2 (11:07→22:03)
[2020-01-28] MEDS: POTASSIUM CHLORIDE 10 MEQ TABLET PO SCH ×2 (11:07→22:01)
[2020-01-28] MEDS: NYSTATIN 500,000 UNIT/5 ML UDCUP SWISH/SWAL SCH ×4 (11:07→22:04)
[2020-01-28] MEDS: FENOFIBRATE 160 MG TABLET PO SCH (11:07)
[2020-01-28] MEDS: carvediloL 12.5 MG TABLET PO SCH ×2 (11:07→18:22)
[2020-01-28] MEDS: PANTOPRAZOLE 40 MG TABLET PO SCH (11:46)
[2020-01-28] MEDS: ROSUVASTATIN 10 MG TABLET PO SCH (11:46)
[2020-01-28] MEDS: ASCORBIC ACID 500 MG TABLET PO SCH ×2 (11:47→22:02)
[2020-01-28] MEDS ORDERED: DIAZEPAM 5 MG TABLET PO ONE (12:26)
[2020-01-28] MEDS ORDERED: fentaNYL 100 MCG/2 ML VIAL IV ONE (12:26)
[2020-01-28] MEDS ORDERED: MIDAZOLAM 2 MG/2 ML VIAL IV ONE (12:26)
[2020-01-28] MEDS ORDERED: SODIUM CHLORIDE 0.45% 1,000 ML IV SCH (12:30)
[2020-01-28] MEDS: ASPIRIN 325 MG TABLET PO SCH (16:42)
[2020-01-28] MEDS: tiZANidine 4 MG TABLET PO PRN (16:53)
[2020-01-28] MEDS: SODIUM CHLORIDE 0.9% 1,000 ML IV SCH (16:53)
[2020-01-28] MEDS: SERTRALINE 25 MG TABLET PO SCH (22:01)
[2020-01-28] MEDS: PREGABALIN 50 MG CAPSULE PO SCH (22:02)
[2020-01-28] MEDS: MIRTAZAPINE 15 MG TABLET PO SCH (22:03)
[2020-01-29] MEDS: tiZANidine 4 MG TABLET PO PRN (01:12)
[2020-01-29] MEDS: ACETAMINOPHEN 325 MG TABLET PO PRN (01:58)
[2020-01-29] MEDS: AMITRIPTYLINE 25 MG TABLET PO PRN (01:58)
[2020-01-29 06:55] LABS: Basophils % 0.2 % (0.0-0.8); Eosinophils % 0.2 % (0.00-10.9); Hematocrit 26.9 VOL% (42.0-52.0); Hemoglobin 8.3 GM/DL (14.0-18.0); Immature Granulocytes % 0.8 %; Immature Granulocytes Absolute 0.04 #; Lymphocytes # 0.9 10*3/uL (1.4-4.0); Lymphocytes % 19.1 % (21.2-54.2); Mean Corpuscular HGB Conc 30.9 GM/DL (32-36); Mean Corpuscular Volume 95.1 FL (87-102); Mean Platelet Volume 9.7 FL (9.6-12.0); Monocytes % 9.8 % (1.7-12.7); Neutrophils % 69.9 % (38.7-73.9); Platelet Count 196 T/CUMM (130-400); Red Blood Count 2.83 MC/CUMM (3.8-5.5); Red Cell Distribution Width 16.4 % (9.3-17.3); White Blood Count 4.8 T/CUMM (4-12)
[2020-01-29] MEDS: GABAPENTIN 300 MG CAPSULE PO SCH (08:15)
[2020-01-29] MEDS: ASPIRIN 325 MG TABLET PO SCH (08:16)
[2020-01-29] MEDS: AMIODARONE 200 MG TABLET PO SCH (08:16)
[2020-01-29] MEDS: FENOFIBRATE 160 MG TABLET PO SCH (08:16)
[2020-01-29] MEDS: ROSUVASTATIN 10 MG TABLET PO SCH (08:16)
[2020-01-29] MEDS: DOCUSATE SODIUM 100 MG CAPSULE PO SCH (08:16)
[2020-01-29] MEDS: cilostazoL 50 MG TABLET PO SCH (08:17)
[2020-01-29] MEDS: traMADol 50 MG TABLET PO SCH (08:17)
[2020-01-29] MEDS: carvediloL 12.5 MG TABLET PO SCH (08:17)
[2020-01-29] MEDS: POTASSIUM CHLORIDE 10 MEQ TABLET PO SCH (08:17)
[2020-01-29] MEDS: ASCORBIC ACID 500 MG TABLET PO SCH (08:17)
[2020-01-29] MEDS: busPIRone 5 MG TABLET PO SCH (08:20)
[2020-01-29] MEDS: NYSTATIN 500,000 UNIT/5 ML UDCUP SWISH/SWAL SCH (08:21)
[2020-01-29] MEDS: PANTOPRAZOLE 40 MG TABLET PO SCH (08:21)
[2020-01-29 08:42] LABS: Calcium 8.4 MG/DL (8.5-10.1); Osmolality,Calculated 288.3 MOS/KG (273-304)
[2020-01-29] MEDS: ENOXAPARIN 100 MG/ML SYRINGE SUBCUT SCH (09:57)
[2020-01-29] MEDS ORDERED: FUROSEMIDE 40 MG TABLET PO PRN (11:03)
[2020-01-29 11:21] VITALS: BP 102/57
[2020-01-29] MEDS ORDERED: APIXABAN 5 MG TABLET PO SCH (21:00)
== END 2020-01-29 13:26 | DRG 854 ==
LOC: N.EDINP 10:41 → N.ED 10:41 → N.3E 17:23
PROVIDERS: ADMIT Internal Medicine; ATTEND Internal Medicine